=== PATIENT | female | born 1990 | race Caucasian/White ===

== ENCOUNTER 2016-07-27 06:41 | Emergency (ER) | payer OTHER ==
[2016-07-27 06:45] VITALS: BP 113/60; PULSE 92; RESP 18; TEMP 97.6
[2016-07-27] MEDS ORDERED: Acetaminophen-Codeine 300-30mg TAB PO STA (06:50)
[2016-07-27] MEDS ORDERED: predniSONE 20 MG TAB PO STA (06:50)
--- NOTE | 2016-07-27 06:50 | ED ---
General Adult HPI - General Chief complaint: ENT Stated complaint: facial pain Time Seen by Provider: 07/27/16 06:47 Source: patient, RN notes reviewed, old records reviewed Mode of arrival: ambulatory Limitations: no limitations - History of Present Illness Initial comments: This is a 25-year-old female the ER for evaluation of dental pain, right dental caries, severe dental caries throughout. Severe dental pain center last night and worsening. No nausea vomiting no fevers. No significant facial swelling. Patient does see a dentist regularly scheduled at teeth pulled. - Related Data Home Medications Medication Instructions Recorded Confirmed Nto-Qaej-Iozjp Acid 1 tab PO DAILY 06/15/15 07/14/15 [-U Capsule] Allergies Allergy/AdvReac Type Severity Reaction Status Date / Time No Known Allergies Allergy Verified 07/27/16 06:46 Review of Systems ROS Statement: Those systems with pertinent positive or pertinent negative responses have been documented in the HPI. ROS Other: All systems not noted in ROS Statement are negative. Past Medical History Past Medical History: Asthma, Osteoarthritis (OA) Additional Past Medical History / Comment(s): pt hasn't used inhaler since before History of Any Multi-Drug Resistant Organisms: None Reported Past Surgical History: Tonsillectomy Past Anesthesia/Blood Transfusion Reactions: No Reported Reaction Past Psychological History: No Psychological Hx Reported Smoking Status: Current every day smoker Past Alcohol Use History: None Reported Past Drug Use History: Marijuana - Past Family History Mother Family Medical History: Asthma, Rheumatoid Arthritis (RA) General Exam Limitations: no limitations General appearance: alert, in no apparent distress Head exam: Present: atraumatic, normocephalic, normal inspection Eye exam: Present: normal appearance, PERRL, EOMI. Absent: scleral icterus, conjunctival injection, periorbital swelling ENT exam: Present: normal exam, mucous membranes moist, other (Patient does have severe dental caries, right-sided dental tenderness no abscess) Neck exam: Present: normal inspection. Absent: tenderness, meningismus, lymphadenopathy Respiratory exam: Present: normal lung sounds bilaterally. Absent: respiratory distress, wheezes, rales, rhonchi, stridor Cardiovascular Exam: Present: regular rate, normal rhythm, normal heart sounds. Absent: systolic murmur, diastolic murmur, rubs, gallop, clicks GI/Abdominal exam: Present: soft, normal bowel sounds. Absent: distended, tenderness, guarding, rebound, rigid Extremities exam: Present: normal inspection, full ROM, normal capillary refill. Absent: tenderness, pedal edema, joint swelling, calf tenderness Back exam: Present: normal inspection Neurological exam: Present: alert, oriented X3, CN II-XII intact Psychiatric exam: Present: normal affect, normal mood Skin exam: Present: warm, dry, intact, normal color. Absent: rash Course Vital Signs 07/27/16 06:43 Temperature 97.6 F Pulse Rate 92 Respiratory 18 Rate Blood Pressure 113/60 O2 Sat by Pulse 99 Oximetry Medical Decision Making - Medical Decision Making 21 for female here with right lower dental caries dental abscess, patient was treated with appropriate antibiotics and okay for discharge home Disposition Clinical Impression: Dental caries, Dental abscess Disposition: HOME SELF-CARE Condition: Good Instructions: Dental Caries (ED), Dental Abscess (ED) Referrals: Jessica Newell MD [Primary Care Provider] - 1-2 days
[2016-07-27] MEDS ORDERED: PENICILLIN V POTASSIUM 250 MG TAB PO STA (06:53)
== END 2016-07-27 07:09 | disposition home or self-care (01) ==
LOC: EC 06:41
DX: K04.7 Periapical abscess without sinus (principal); K02.9 Dental caries, unspecified; F17.200 Nicotine dependence, unspecified, uncomplicated; Z79.899 Other long term (current) drug therapy
CPT/HCPCS: 99283; J7512

== ENCOUNTER 2017-03-06 17:32 | Outpatient (CLI) | payer OTHER ==
[2017-03-06 18:35] LABS: Appearance,Urine Clear (Clear); Bilirubin,Urine Negative (Negative); Blood,Urine Negative (Negative); Color,Urine Yellow; Glucose,Urine (UA) Negative (Negative); Ketones,Urine Trace (Negative); Leukocyte Esterase,Urine Moderate (Negative); Mucus,Urine Few /hpf; Nitrite,Urine Negative (Negative); PH, Urine 6.5 (5.0-8.0); Protein,Urine 1+ (Negative); RBC,Urine 1 /hpf (0-5); Specific Gravity,Urine 1.021 (1.001-1.035); Squamous Epithelial Cell,Urine 2 /hpf (0-4); WBC,Urine <1 /hpf (0-5)
[2017-03-06 18:39] VITALS: BP 109/65; PULSE 100; RESP 19; TEMP 97.8
--- NOTE | 2017-03-24 11:48 | P.MSEPDOC ---
Presenting Problems - Arrival Data Date of Arrival on Unit: 03/06/17 Time of Arrival on Unit: 17:32 Mode of Transport: Wheelchair - Complaint OB-Reason for Admission/Chief Complaint: Possible Onset of Labor Comment: Contractions starting yesterday about noon, worsening about 1700 yesterday evening. Medical History - Information : 2 Para: 1 Term: 1 : 0 Abortions: Spontaneous or Elective: 0 Number of Living Children: 1 - Gestational Age Gestational Age by TANGELA (wks/days): 29 Weeks and 4 Days - History Complications: Smoker Review of Systems - Review of Systems Constitutional: No problems Breast: No problems ENT: Cough Cardiovascular: No problems Respiratory: No problems Gastrointestinal: No problems Genitourinary: No problems Musculoskeletal: No problems Neurological: No problems Skin: No problems Vital Signs - Temperature Temperature: 97.8 F Temperature Source: Temporal Artery Scan - Pulse Pulse Oximetery Pulse Rate: 100 Pulse Assessment Method: Pulse Oximetry - Respirations Respiratory Rate: 19 Oxygen Delivery Method: Room Air O2 Sat by Pulse Oximetry: 97 - Blood Pressure Right Arm Blood Pressure: 109/65 Blood Pressure Mean: 79 Blood Pressure Source: Automatic Cuff Medical Screen Scoring (Pre) - Cervical Exam Dilation: 0 cm = 0 Membranes: Intact - Uterine Contractions Frequency: < 36 weeks = 6 Duration: > 40 seconds = 2 Intensity: N/A - Maternal Vital Signs Maternal Temperature: N/A Maternal Blood Pressure: N/A Signs of Preeclampsia: N/A Maternal Respirations: N/A - Pain Assessment Pain Location and Character: Back, Abdomen Pain Scale Used: Numeric (1 - 10) Pain Intensity: 8 Pain Management Goal: 2 Pain Description: Cramping Pain Radiation Location: n/a Pain Frequency: Intermittent Pain Duration: 1 Pain Duration Units: Days Pain Behavior: Vocalization Effects of Pain: n/a Pain Aggravating Factors: Contractions Pharmacological Interventions: Discuss Pain Med Options Non-Pharmacological Interventions: Distraction - Maternal Trauma Maternal Trauma: N/A - Assessment Baseline FHR: 140 Heart Rate - NICHD Category: Category I (Normal) = 0 NST: Reactive Position: N/A Station: N/A - Total Score Total Score (Pre): 8 - Level of Risk Level of Risk: Medium (6-9) Physician Notification (Pre) - Physician Notified Physician Notified Date: 03/06/17 Physician Notified Time: 18:20 Physician/Practitioner Notifed:: Patricia Spoke With: Patricia New Order Received: Yes (FFN, U/A) Medical Screen Scoring (Post) - Cervical Exam Dilation: 0 cm = 0 Membranes: Intact - Uterine Contractions Frequency: > 5 minutes apart = 1 Duration: > 40 seconds = 2 Intensity: N/A - Maternal Vital Signs Maternal Temperature: N/A Maternal Blood Pressure: N/A Signs of Preeclampsia: N/A Maternal Respirations: N/A - Maternal Trauma Maternal Trauma: N/A - Assessment Heart Rate - NICHD Category: Category I (Normal) = 0 NST: Reactive Position: N/A Station: N/A - Total Score Total Score (Post): 3 - Post Treatment Level of Risk Post Treatment Level of Risk: Low (0-5) Physician Notification (Post) - Physician Notified Physician Notified Date: 03/06/17 Physician Notified Time: 19:20 Physician/Practitioner Notified:: Dr Gomez Spoke With: Dr Gomez New Order Received: Yes - Notification Comment Comment: Pt here with complaints of contractions, FFN was positive. Contractions tracing as irregular on monitor, cervix still closed, thick, high, Order to discharge patient with instructions to call office tomorrow morning for appointment with Dr Rasmussen. Disposition - Disposition OB Disposition: Discharge to home Discharge Date: 03/06/17 Discharge Time: 19:25 I agree with the RN Medical Screening Exam: Yes Risk & Benefit of care provided described in d/c instruction: Yes Diagnosis: FALSE LABOR BEFORE 37 COMPLETED WEEKS OF GEST, SECOND TRI
== END 2017-03-06 19:25 | disposition home or self-care (01) ==
LOC: FBPOP 17:32
PROVIDERS: ATTEND Obstetrics & Gynecology
DX: O47.02 False labor before 37 completed weeks of gestation, second trimester (principal); Z3A.29 29 weeks gestation of pregnancy
CPT/HCPCS: 81001; 82731; 99213

== ENCOUNTER 2017-04-04 18:15 | Outpatient (CLI) | payer OTHER ==
[2017-04-04 18:48] VITALS: BP 114/66; PULSE 98; RESP 20; TEMP 97.4
[2017-04-04] MEDS ORDERED: LACTATED RINGERS 1,000 ML IV SCH ×2 (19:15→20:30)
--- NOTE | 2017-04-04 21:02 | US ---
EXAMINATION TYPE: US OB >= 14 wk fetus DATE OF EXAM: 04/04/2017 COMPARISON: None CLINICAL HISTORY: bleeding and need cervical length TECHNIQUE: Transabdominal (TA) GESTATIONAL AGE / DATING Physician Established: (33 weeks/5 days) EDC: 05/18/2017 Dates by LMP: (33 weeks/5 days) EDC: 05/18/2017 Dates by First Scan: No previous this is first scan Dates by Current Scan: (33 weeks/1 days) EDC: 05/22/2017 SURVEY IUP: Single PLACENTA: Fundal PREVIA: No Previa PEYTON: 13.6 cm Normal CERVICAL LENGTH (transabdominal: norm > 3.0cm): 3.8 cm BIOMETRY PRESENTATION: Vertex LIE: Longitudinal BPD: 8.5 cm 34 weeks / 2 days HC: 30.7 cm 34 weeks / 2 days AC: 28.4 cm 32 weeks / 3 days FL: 6.4 cm 33 weeks / 1 days ESTIMATED WEIGHT IN GRAMS: 2089 grams ESTIMATED WEIGHT IN LBS/OZ: 4 lbs. 10 oz. WEIGHT PERCENTAGE BASED ON ESTABLISHED DATES: 22% HC/AC: 1.1cm Normal FL/AC: 75.5cm Normal HEART RATE: 141 bpm RHYTHM: Normal MATERNAL WALL MEASUREMENT: 1.8 cm from skin to anterior uterine wall (if exam limited due to body hab itus). Viable IUP 33w 1d TANGELA 05/22/2017 HR 141 BPM IMPRESSION: The ultrasound gestational age is 33 weeks 1 day. I see no complicating process.
[2017-04-04 21:05] LABS: Appearance,Urine Cloudy (Clear); Bilirubin,Urine Negative (Negative); Blood,Urine Moderate (Negative); Color,Urine Yellow; Glucose,Urine (UA) Negative (Negative); Ketones,Urine Negative (Negative); Leukocyte Esterase,Urine Small (Negative); Mucus,Urine Rare /hpf; Nitrite,Urine Negative (Negative); Protein,Urine Negative (Negative); RBC,Urine <1 /hpf (0-5); Specific Gravity,Urine 1.009 (1.001-1.035); Squamous Epithelial Cell,Urine 8 /hpf (0-4); Urobilinogen,Urine <2.0 mg/dL (<2.0); WBC,Urine 2 /hpf (0-5)
[2017-04-04] MEDS ORDERED: BETAMET ACET-BETAMETH SOD PHOS 6 MG/ML VIAL IM SCH (21:15)
--- NOTE | 2017-04-25 16:50 | P.MSEPDOC ---
Presenting Problems - Arrival Data Date of Arrival on Unit: 04/04/17 Time of Arrival on Unit: 18:15 Mode of Transport: Portable - Complaint OB-Reason for Admission/Chief Complaint: Other Comment: contractions and blood on toilet tissue Medical History - Information : 2 Para: 1 Term: 1 : 0 Abortions: Spontaneous or Elective: 0 Number of Living Children: 1 - Gestational Age Gestational Age by TANGELA (wks/days): 33 Weeks and 5 Days - History Complications: Smoker Review of Systems - Review of Systems Constitutional: No problems Breast: No problems ENT: No problems Cardiovascular: No problems Respiratory: No problems Gastrointestinal: No problems Genitourinary: No problems Musculoskeletal: No problems Neurological: No problems Skin: No problems Comment: tonsils removed age 7 and tubes in ears at age 7 Vital Signs - Temperature Temperature: 97.4 F Temperature Source: Temporal Artery Scan - Pulse Sitting Brachial Pulse Rate: 98 Pulse Assessment Method: Automatic Cuff - Respirations Respiratory Rate: 20 Oxygen Delivery Method: Room Air O2 Sat by Pulse Oximetry: 96 - Blood Pressure Right Arm Blood Pressure: 114/66 Blood Pressure Mean: 82 Blood Pressure Source: Automatic Cuff Medical Screen Scoring (Pre) - Pain Assessment Pain Location and Character: Back Pain Scale Used: Numeric (1 - 10) Pain Intensity: 6 Pain Description: *Acute, Pressure, Throbbing Pain Frequency: Intermittent Pain Behavior: Vocalization Pain Aggravating Factors: Contractions - Maternal Trauma Maternal Trauma: N/A - Assessment Baseline FHR: 150 Heart Rate - NICHD Category: Category I (Normal) = 0 - Total Score Total Score (Pre): 0 Physician Notification (Pre) - Physician Notified Physician Notified Date: 04/04/17 Physician Notified Time: 19:00 Physician/Practitioner Notifed:: dr cruz Spoke With: dr cruz New Order Received: Yes Medical Screen Scoring (Post) - Cervical Exam Dilation: 1-3 cm = 1 Membranes: Intact - Uterine Contractions Frequency: < 36 weeks = 6 Duration: > 40 seconds = 2 - Maternal Vital Signs Maternal Temperature: N/A Maternal Blood Pressure: N/A Signs of Preeclampsia: N/A Maternal Respirations: N/A - Pain Assessment Pain Location and Character: Abdomen Pain Scale Used: Numeric (1 - 10) Pain Intensity: 8 - Maternal Trauma Maternal Trauma: N/A - Assessment Heart Rate: 135 Heart Rate - NICHD Category: Category I (Normal) = 0 NST: Reactive Position: N/A - Total Score Total Score (Post): 9 - Post Treatment Level of Risk Post Treatment Level of Risk: Medium (6-9) Physician Notification (Post) - Physician Notified Physician Notified Date: 04/04/17 Physician Notified Time: 21:12 Physician/Practitioner Notified:: Dr Cruz - Notification Comment Comment: reported on +ffn (blood tinged swab), UA results, pt still ezequiel but states some are painful and some are not. Reported on no cervical change after 1 hr, IV fluids infused. orders to d/c home with current restrictions, and instructions to return with worsening sx. orders to give betamethasone now, and pt is to return tomorrow afternoon for 2nd dose, as well as call office in am for follow up. Disposition - Disposition OB Disposition: Discharge to home Discharge Date: 04/04/17 Discharge Time: 21:33 I agree with the RN Medical Screening Exam: Yes Risk & Benefit of care provided described in d/c instruction: Yes Diagnosis: FALSE LABOR, UNSPECIFIED
== END 2017-04-04 21:33 | disposition home or self-care (01) ==
LOC: FBPOP 18:15
PROVIDERS: ATTEND Obstetrics & Gynecology
DX: O47.9 False labor, unspecified (principal); O99.333 Smoking (tobacco) complicating pregnancy, third trimester; Z3A.33 33 weeks gestation of pregnancy
CPT/HCPCS: 59025; 99215; 96360; 96361; 96372; 82731; 81001; 76805; J0702

== ENCOUNTER 2017-04-05 16:30 | Outpatient (CLI) | payer OTHER ==
[2017-04-05] MEDS ORDERED: BETAMET ACET-BETAMETH SOD PHOS 6 MG/ML VIAL IM STA (16:48)
[2017-04-05 17:03] VITALS: TEMP 98.9
--- NOTE | 2017-05-19 08:22 | P.MSEPDOC ---
Presenting Problems - Arrival Data Date of Arrival on Unit: 04/05/17 Time of Arrival on Unit: 16:48 Mode of Transport: Ambulatory - Complaint OB-Reason for Admission/Chief Complaint: Other Comment: Pt reports for second celestone injection. Medical History - Information : 2 Para: 1 Term: 1 : 0 Abortions: Spontaneous or Elective: 0 Number of Living Children: 1 - Gestational Age Gestational Age by TANGELA (wks/days): 33 Weeks and 6 Days - History Complications: Other Comment: Pre-term labor Review of Systems - Review of Systems Constitutional: No problems Breast: No problems ENT: No problems Cardiovascular: No problems Respiratory: No problems Gastrointestinal: No problems Genitourinary: No problems Musculoskeletal: No problems Neurological: No problems Skin: No problems Vital Signs - Temperature Temperature: 98.9 F Temperature Source: Oral Physician Notification (Pre) - Physician Notified Physician Notified Date: 04/05/17 Physician Notified Time: 17:03 Physician/Practitioner Notifed:: Grady Disposition - Disposition OB Disposition: Discharge to home, Written follow up instructions reviewed Discharge Date: 04/05/17 Discharge Time: 17:44 I agree with the RN Medical Screening Exam: Yes Risk & Benefit of care provided described in d/c instruction: Yes Diagnosis: RELATED CONDITIONS, UNSPECIFIED, THIRD TRIMESTER
== END 2017-04-05 17:44 | disposition home or self-care (01) ==
LOC: FBPOP 16:30
PROVIDERS: ATTEND Obstetrics & Gynecology
DX: O99.89 Other specified diseases and conditions complicating pregnancy, childbirth and the puerperium (principal); O26.93 Pregnancy related conditions, unspecified, third trimester; Z3A.33 33 weeks gestation of pregnancy
CPT/HCPCS: 59025; 96372; J0702

== ENCOUNTER 2017-04-24 22:21 | Outpatient (CLI) | payer OTHER ==
[2017-04-24 23:53] VITALS: BP 119/70; PULSE 104; RESP 16
--- NOTE | 2017-06-02 10:16 | P.MSEPDOC ---
Presenting Problems - Arrival Data Date of Arrival on Unit: 04/24/17 Time of Arrival on Unit: 10:25 Mode of Transport: Ambulatory - Complaint OB-Reason for Admission/Chief Complaint: Possible Onset of Labor, Vaginal Bleeding Comment: Presents to triage with c/o bleeding and contractions starting around 2230. Medical History - Information : 2 Para: 1 Term: 1 : 0 Abortions: Spontaneous or Elective: 0 Number of Living Children: 1 - Gestational Age Gestational Age by TANGELA (wks/days): 36 Weeks and 4 Days Review of Systems - Review of Systems Constitutional: No problems Breast: No problems ENT: No problems Cardiovascular: No problems Respiratory: No problems Gastrointestinal: No problems Genitourinary: No problems Musculoskeletal: No problems Neurological: No problems Skin: No problems Vital Signs - Pulse Right Pulse Rate: 104 Pulse Assessment Method: Palpation - Respirations Respiratory Rate: 16 Oxygen Delivery Method: Room Air O2 Sat by Pulse Oximetry: 98 - Blood Pressure Right Arm Blood Pressure: 119/70 Blood Pressure Mean: 86 Blood Pressure Source: Automatic Cuff Medical Screen Scoring (Pre) - Cervical Exam Dilation: 1-3 cm = 1 Effacement: Exam Deferred Membranes: Intact - Uterine Contractions Frequency: N/A Duration: N/A Intensity: N/A - Maternal Vital Signs Maternal Temperature: N/A Maternal Blood Pressure: N/A Signs of Preeclampsia: N/A Maternal Respirations: N/A - Pain Assessment Pain Location and Character: Abdomen Pain Scale Used: Numeric (1 - 10) Pain Intensity: 8 Pain Management Goal: 0 Pain Description: *Acute, Cramping Pain Frequency: Intermittent Pain Duration Units: Minutes Pain Behavior: Vocalization Pain Aggravating Factors: Position Non-Pharmacological Interventions: Distraction, Inactivity, Position/Reposition , Relaxation Technique - Maternal Trauma Maternal Trauma: N/A - Assessment Baseline FHR: 135 Heart Rate - NICHD Category: Category I (Normal) = 0 NST: Reactive Position: N/A Station: N/A - Total Score Total Score (Pre): 1 - Level of Risk Level of Risk: Low (0-5) Physician Notification (Pre) - Physician Notified Physician Notified Date: 04/24/17 Physician Notified Time: 23:06 Physician/Practitioner Notifed:: Dr. Lincoln Spoke With: Dr. Lincoln New Order Received: Yes - Notification Comment Comment: Order to recheck pt in one hour, if no change pt is cleared for discharge home with follow up instructions. Medical Screen Scoring (Post) - Cervical Exam Dilation: 1-3 cm = 1 Effacement: Exam Deferred Membranes: Intact - Uterine Contractions Frequency: N/A Duration: N/A Intensity: N/A - Maternal Vital Signs Maternal Temperature: N/A Maternal Blood Pressure: N/A Signs of Preeclampsia: N/A Maternal Respirations: N/A - Pain Assessment Pain Location and Character: Abdomen Pain Scale Used: Numeric (1 - 10) Pain Intensity: 7 Pain Management Goal: 0 Pain Description: *Acute, Cramping Pain Frequency: Intermittent Pain Duration Units: Minutes Pain Behavior: Vocalization Pain Aggravating Factors: Activity Non-Pharmacological Interventions: Distraction, Inactivity, Position/Reposition , Relaxation Technique - Maternal Trauma Maternal Trauma: N/A - Assessment Heart Rate: 135 Heart Rate - NICHD Category: Category I (Normal) = 0 NST: Reactive Position: N/A Station: N/A - Total Score Total Score (Post): 1 - Post Treatment Level of Risk Post Treatment Level of Risk: Low (0-5) Physician Notification (Post) - Physician Notified Physician Notified Date: 04/24/17 Physician Notified Time: 23:06 Physician/Practitioner Notified:: Dr. Lincoln Spoke With: Dr. Lincoln - Notification Comment Comment: No change in cervical exam. Pt is cleared for discharge home at this time per Dr. Lincoln. Discharege instructions given. Disposition - Disposition OB Disposition: Discharge to home Discharge Date: 04/24/17 Discharge Time: 22:36 I agree with the RN Medical Screening Exam: Yes Risk & Benefit of care provided described in d/c instruction: Yes Diagnosis: FALSE LABOR, UNSPECIFIED
== END 2017-04-24 23:36 | disposition home or self-care (01) ==
LOC: FBPOP 22:21
PROVIDERS: ATTEND Obstetrics & Gynecology Obstetrics
DX: O47.03 False labor before 37 completed weeks of gestation, third trimester (principal); Z3A.36 36 weeks gestation of pregnancy
CPT/HCPCS: 59025; 99213

== ENCOUNTER 2017-05-04 01:45 | Outpatient (CLI) | payer OTHER ==
[2017-05-04 03:33] VITALS: BP 108/55; PULSE 102; RESP 18; TEMP 97.5
--- NOTE | 2017-05-12 10:41 | P.MSEPDOC ---
Presenting Problems - Arrival Data Date of Arrival on Unit: 05/04/17 Time of Arrival on Unit: 01:45 Mode of Transport: Ambulatory - Complaint OB-Reason for Admission/Chief Complaint: Possible Onset of Labor Comment: pt to triage c/o contractions states she had intercourse recently Medical History - Information : 2 Para: 1 Term: 1 : 0 Abortions: Spontaneous or Elective: 0 Number of Living Children: 1 - Gestational Age Gestational Age by TANGELA (wks/days): 38 Weeks and 0 Days - History Complications: Smoker Review of Systems - Review of Systems Constitutional: No problems Breast: No problems ENT: No problems Cardiovascular: No problems Respiratory: No problems Gastrointestinal: No problems Genitourinary: No problems Musculoskeletal: No problems Neurological: No problems Skin: No problems Vital Signs - Temperature Temperature: 97.5 F Temperature Source: Temporal Artery Scan - Pulse Right Supine Brachial Pulse Rate: 102 Pulse Assessment Method: Automatic Cuff - Respirations Respiratory Rate: 18 Oxygen Delivery Method: Room Air O2 Sat by Pulse Oximetry: 98 - Blood Pressure Right Arm Supine Blood Pressure: 108/55 Blood Pressure Mean: 72 Blood Pressure Source: Automatic Cuff Medical Screen Scoring (Pre) - Cervical Exam Dilation: 1-3 cm = 1 Effacement: More than 50% = 2 Membranes: Intact - Uterine Contractions Frequency: > or = 36 weeks =2 Duration: > 40 seconds = 2 - Maternal Vital Signs Maternal Temperature: N/A Maternal Blood Pressure: N/A Signs of Preeclampsia: N/A Maternal Respirations: N/A - Pain Assessment Pain Location and Character: Abdomen Pain Scale Used: Numeric (1 - 10) Pain Intensity: 10 Pain Management Goal: 5 Pain Description: *Acute Pain Radiation Location: contractions Pain Frequency: Intermittent Pain Duration: 5 Pain Duration Units: Hours Pain Behavior: Fidgeting, Moving Slowly Effects of Pain: slow moving Pain Aggravating Factors: Contractions - Maternal Trauma Maternal Trauma: N/A - Assessment Baseline FHR: 125 Heart Rate - NICHD Category: Category I (Normal) = 0 NST: Reactive Position: N/A - Total Score Total Score (Pre): 7 - Level of Risk Level of Risk: Medium (6-9) Physician Notification (Pre) - Physician Notified Physician Notified Date: 05/04/17 Physician Notified Time: 02:59 Physician/Practitioner Notifed:: Dr Cruz Spoke With: Dr Cruz New Order Received: Yes - Notification Comment Comment: Vag exam same x2 after 1 hour, pt offered to stay and walk the halls for another hour to be rechecked or go home and take a shower, pt requesting to go home at this time. Will return if symptoms worsen. Disposition - Disposition OB Disposition: Discharge to home Transferred to:: Home Discharge Date: 05/04/17 Discharge Time: 03:10 I agree with the RN Medical Screening Exam: Yes Risk & Benefit of care provided described in d/c instruction: Yes Diagnosis: FALSE LABOR, UNSPECIFIED
== END 2017-05-04 03:10 | disposition home or self-care (01) ==
LOC: FBPOP 01:45
PROVIDERS: ATTEND Obstetrics & Gynecology
DX: O47.1 False labor at or after 37 completed weeks of gestation (principal); Z3A.38 38 weeks gestation of pregnancy; O99.333 Smoking (tobacco) complicating pregnancy, third trimester
CPT/HCPCS: 59025; 99213

== ENCOUNTER 2017-05-04 06:59 | Outpatient (CLI) | payer OTHER ==
[2017-05-04 07:22] VITALS: BP 115/64; PULSE 96; RESP 20; TEMP 97.2
--- NOTE | 2017-05-12 10:42 | P.MSEPDOC ---
Presenting Problems - Arrival Data Date of Arrival on Unit: 05/04/17 Time of Arrival on Unit: 06:54 Mode of Transport: Wheelchair - Complaint OB-Reason for Admission/Chief Complaint: Possible Onset of Labor Comment: contractions since 10pm last evening. Medical History - Information : 2 Para: 1 Term: 1 : 0 Abortions: Spontaneous or Elective: 0 Number of Living Children: 1 - Gestational Age Gestational Age by TANGELA (wks/days): 38 Weeks and 0 Days Review of Systems - Review of Systems Constitutional: No problems Breast: No problems ENT: No problems Cardiovascular: No problems Respiratory: No problems Gastrointestinal: No problems Genitourinary: No problems Musculoskeletal: No problems Neurological: No problems Skin: No problems Vital Signs - Temperature Temperature: 97.2 F Temperature Source: Temporal Artery Scan - Pulse Right Sitting Brachial Pulse Rate: 96 Pulse Assessment Method: Automatic Cuff - Respirations Respiratory Rate: 20 Oxygen Delivery Method: Room Air - Blood Pressure Right Arm Sitting Blood Pressure: 115/64 Blood Pressure Mean: 81 Blood Pressure Source: Automatic Cuff Medical Screen Scoring (Pre) - Cervical Exam Dilation: 1-3 cm = 1 Membranes: Intact - Uterine Contractions Frequency: > or = 36 weeks =2 Duration: > 40 seconds = 2 - Pain Assessment Pain Location and Character: Abdomen Pain Scale Used: Numeric (1 - 10) Pain Intensity: 10 Pain Management Goal: 3 Pain Description: Cramping Pain Radiation Location: n/a Pain Duration: 9 Pain Duration Units: Hours Pain Behavior: Facial Grimacing, Moving Slowly, Vocalization Pain Aggravating Factors: Activity - Assessment Baseline FHR: 125 Heart Rate - NICHD Category: Category I (Normal) = 0 NST: Reactive - Total Score Total Score (Pre): 5 - Level of Risk Level of Risk: Low (0-5) Medical Screen Scoring (Post) - Cervical Exam Dilation: 1-3 cm = 1 Effacement: More than 50% = 2 Membranes: Intact - Uterine Contractions Frequency: > 5 minutes apart = 1 Duration: N/A Intensity: N/A - Maternal Vital Signs Maternal Temperature: N/A Maternal Blood Pressure: N/A Signs of Preeclampsia: N/A Maternal Respirations: N/A - Maternal Trauma Maternal Trauma: N/A - Assessment Heart Rate: 130 Heart Rate - NICHD Category: Category I (Normal) = 0 NST: Reactive Position: N/A Station: N/A - Total Score Total Score (Post): 4 - Post Treatment Level of Risk Post Treatment Level of Risk: Low (0-5) Physician Notification (Post) - Physician Notified Physician Notified Date: 05/04/17 Physician Notified Time: 08:33 Physician/Practitioner Notified:: sherri Spoke With: sherri New Order Received: Yes (discharged home) Disposition - Disposition OB Disposition: Discharge to home Discharge Date: 05/04/17 Discharge Time: 08:33 I agree with the RN Medical Screening Exam: Yes Risk & Benefit of care provided described in d/c instruction: Yes Diagnosis: FALSE LABOR, UNSPECIFIED
== END 2017-05-04 08:33 | disposition home or self-care (01) ==
LOC: FBPOP 06:59
PROVIDERS: ATTEND Obstetrics & Gynecology
DX: O47.1 False labor at or after 37 completed weeks of gestation (principal); Z3A.38 38 weeks gestation of pregnancy
CPT/HCPCS: 59025; 99213

== ENCOUNTER 2017-05-09 23:11 | Inpatient (IN) | payer OTHER ==
[2017-05-10] MEDS ORDERED: METHYLERGONOVINE 0.2 MG/ML 1 ML AMP IM PRN (01:25)
[2017-05-10] MEDS ORDERED: OXYTOCIN 10 UNIT/ML 1 ML VIAL IM PRN (01:25)
[2017-05-10] MEDS ORDERED: LIDOCAINE 1% (PF) 10 MG/ML (30 ML SDV) SQ PRN (01:25)
[2017-05-10] MEDS ORDERED: TERBUTALINE 1 MG/ML VIAL SQ PRN (01:25)
[2017-05-10] MEDS ORDERED: CARBOPROST TROMETHAMINE 250 MCG/ML 1 ML AMP IM PRN (01:25)
--- NOTE | 2017-05-10 01:58 | P.HPOB ---
History of Present Illness H&P Date: 05/10/17 This is a 26-year-old white female 2 para 1001 EDC 05/18/2017 at 38-6/7 weeks' gestation. Patient presents this morning with a large gush clear fluid at approximately 0120 hours. She is having irregular uterine contractions. Fetus is been active throughout the . Past obstetric history significant for blood type B negative, rubella status immune. Group B strep cultures negative. Gonorrhea and chlamydia cultures negative. HIV testing, hepatitis B surface antigen, urine screen, gonorrhea and chlamydia cultures all negative. One-hour Glucola 118. Past medical history significant for asthma, on no meds. Past surgical history significant for tonsillectomy and tympanic tubes placed at age 7. Current medications dye clean just when necessary, vitamin daily. ALLERGIES none known. Social history patient smokes tobacco one half pack per day, she is , she denies alcohol or drug use. On exam patient is 5 foot 3 inches, 168 pounds, blood pressure 109/69, pulse 106. The general physical exam is significant for large uric standard is, 22 peripheral tattoos, and trace edema. The chest is clear in all luong. The abdomen is obvious E gravid with a fundal height of 39 cm. Cervix is 3 cm dilated, 50% effaced, vertex presentation, with obvious clear fluid on the perineal body. Cervix is slightly posterior. heart rate is in the 140s with frequent accelerations consistent with reactive NST. Uterine contractions are occurring spontaneously approximately every 8-10 minutes apart of mild intensity. Impression: 39-6/7 weeks intrauterine , spontaneous amniorrhexis, not in active labor. Otherwise all signs reassuring. Plan: Close maternal and surveillance. Likely Pitocin augmentation pending clinical progress. Anticipate normal spontaneous vaginal delivery. Review of Systems Constitutional: Reports as per HPI Past Medical History Past Medical History: Asthma, Osteoarthritis (OA) Additional Past Medical History / Comment(s): pt hasn't used inhaler since before History of Any Multi-Drug Resistant Organisms: None Reported Past Surgical History: Tonsillectomy Past Anesthesia/Blood Transfusion Reactions: No Reported Reaction Smoking Status: Current every day smoker - Past Family History Mother Family Medical History: Asthma, Rheumatoid Arthritis (RA) Medications and Allergies Home Medications Medication Instructions Recorded Confirmed Type Pnv,Calcium 72/Iron/Folic Acid 1 tab PO DAILY 12/18/17 02/20/18 History [ Plus Tablet] Allergies Allergy/AdvReac Type Severity Reaction Status Date / Time No Known Allergies Allergy Verified 05/09/17 23:21 Exam - Vital Signs Vital signs: Intake and Output 05/09/17 05/09/17 05/10/17 14:59 22:59 06:59 Other: Weight 76.204 kg Patient Weight 05/10/17 06:59 Weight 76.204 kg See dictation under HPI please Assessment and Plan Plan: Admit. Close maternal and surveillance. Consider oxytocin augmentation pending clinical progress. Anticipate normal spontaneous vaginal delivery. Time with Patient: Less than 30
[2017-05-10 02:05] LABS: Basophils % (A) 0 %; Eosinophils # (A) 0.1 k/uL (0-0.7); Eosinophils % (A) 1 %; HCT 36.4 % (34.0-46.0); HGB 12.6 gm/dL (11.4-16.0); Lymphocytes # (A) 2.3 k/uL (1.0-4.8); Lymphocytes % (A) 22 %; MCH 30.2 pg (25.0-35.0); MCHC 34.6 g/dL (31.0-37.0); MCV 87.2 fL (80.0-100.0); Mean Platelet Volume 7.3; Monocytes # (A) 0.5 k/uL (0-1.0); Monocytes % (A) 5 %; Neutrophils # (A) 7.4 k/uL (1.3-7.7); Neutrophils % (A) 70 %; Platelet Count 222 k/uL (150-450); RBC 4.17 m/uL (3.80-5.40); RDW 14.5 % (11.5-15.5); WBC 10.6 k/uL (3.8-10.6)
[2017-05-10] MEDS ORDERED: BUTORPHANOL 1 MG/ML 1 ML VIAL IV PRN (02:51)
[2017-05-10 03:04] VITALS: BMI 29.7
[2017-05-10] MEDS: LACTATED RINGERS 1,000 ML IV SCH ×3 (03:13→10:29)
[2017-05-10] MEDS ORDERED: fentaNYL (PF) 50 MCG/ML 5 ML AMP ONE (06:01)
[2017-05-10] MEDS ORDERED: BUPIVACAINE (PF) 0.25% 30 ML VIAL ONE (06:01)
[2017-05-10] MEDS ORDERED: SODIUM CHLORIDE 0.9% 100 ML BAG ONE (06:01)
[2017-05-10] MEDS ORDERED: BUPIVACAINE (PF) 0.25% 25 ML, fentaNYL (PF) 200 MCG in SODIUM CHLORIDE 0.9% 71 ML EPIDURAL ONE (06:17)
[2017-05-10] MEDS: OXYTOCIN 20 UNITS/1000 ML NS 1,000 ML IV SCH ×2 (06:37→19:59)
[2017-05-10] MEDS ORDERED: SIMETHICONE 80 MG CHEWABLE PO PRN (18:34)
[2017-05-10] MEDS ORDERED: WITCH HAZEL 1 EACH MED..PAD TOPICAL PRN (18:34)
[2017-05-10] MEDS ORDERED: BENZOCAINE/MENTHOL SPRAY 1 GM/SPRAY AEROSOL TOPICAL PRN (18:34)
[2017-05-10] MEDS ORDERED: diphenhydrAMINE 50 MG/ML 1 ML VIAL IVP PRN ×2 (18:34)
[2017-05-10] MEDS ORDERED: HYDROCORTISONE 2.5% RECTAL CREAM 30 GM TUBE RECTAL PRN (18:34)
[2017-05-10] MEDS ORDERED: Acetaminophen-Codeine 300-30mg TAB PO PRN ×2 (18:34)
[2017-05-10] MEDS ORDERED: ACETAMINOPHEN TAB 325 MG TAB PO PRN (18:34)
[2017-05-10] MEDS ORDERED: diphenhydrAMINE 25 MG CAP PO PRN (18:34)
[2017-05-10] MEDS ORDERED: ZOLPIDEM 5 MG TAB PO PRN (18:34)
[2017-05-10] MEDS ORDERED: diphenhydrAMINE 50 MG CAP PO PRN (18:34)
--- NOTE | 2017-05-10 18:39 | P.PROBDLV ---
Vaginal Delivery Note - . Vaginal Delivery Note: The patient is a 26-year-old 2 para 1001 admitted at 38-6/7 weeks by good dating parameters. She is admitted with documented spontaneous rupture of membranes of clear fluid. Her has been essentially uncomplicated though she is known to be Rh- and received RhoGAM at 28 weeks. On labor and delivery, all signs reassuring. She made no significant progress for several hours on labor and delivery and had Pitocin augmentation started. She had an epidural catheter placed for analgesia. She then made fairly slow progress through the latent phase of labor. She progressed to the active phase of labor at which time she made fairly steady and regular progress and ultimately progressed to anterior lip at which time the lip was able to be reduced while she pushed making her complete and at 0 station. She pushed over the course of approximately 5 minutes to a normal spontaneous vaginal delivery of a viable 6 lbs. 11 oz. baby girl with Apgars of 9 at 1 minute and 9 at 5 minutes delivered in the right occiput anterior position. cord blood was collected for evaluation for the necessity of RhoGAM prior to discharge. The placenta was delivered spontaneously, intact, and grossly normal with a grossly normal three- vessel cord inserted approximately 3 cm from margin of the placental disc. Inspection of the perineum vagina and cervix demonstrated no evidence of lacerations aside from a periurethral first-degree laceration not bleeding and not repaired. Estimated blood loss for the case was approximate 400 mL as her was initially some uterine atony which was controlled with IV Pitocin. All sponge, instrument, and needle counts were correct. Both mother and infant are resting comfortably in recovery.
[2017-05-10] MEDS: IBUPROFEN 600 MG TAB PO PRN (18:44)
[2017-05-10] MEDS ORDERED: OXYTOCIN 20 UNITS/1000 ML NS 1,000 ML IV SCH (18:45)
[2017-05-10] MEDS: SENNOSIDES-DOCUSATE SODIUM 1 EACH TAB PO SCH (19:59)
[2017-05-11] MEDS: LACTATED RINGERS 1,000 ML IV SCH (03:35)
[2017-05-11] MEDS: SENNOSIDES-DOCUSATE SODIUM 1 EACH TAB PO SCH (07:40)
[2017-05-11] MEDS: IBUPROFEN 600 MG TAB PO PRN ×3 (07:41→20:19)
--- NOTE | 2017-05-11 11:17 | P.DS ---
Providers Date of admission: 05/10/17 00:17 Expected date of discharge: 05/11/17 Attending physician: Susanne Rasmussen Primary care physician: Stated None - Discharge Diagnosis(es) (1) Normal vaginal delivery Current Visit: Yes Status: Acute (2) Term Current Visit: Yes Status: Acute Hospital Course: The patient is a 26-year-old 2 para 1001 admitted at 38-6/7 weeks by good dating parameters. She presented to the hospital with documented spontaneous rupture of membranes of clear fluid. Her has been uncomplicated and group B strep status is negative. On labor and delivery, she had an epidural catheter placed for analgesia and Pitocin augmentation started. She had a very slow progress through the latent phase and, to a lesser extent , the active phase of labor. She did ultimately progressed to complete and then pushed quickly to a normal spontaneous vaginal delivery of a viable 6 lbs. 11 oz. baby girl with Apgars of 9 at 1 minute and 9 at 5 minutes. Her course was unremarkable with vital signs remaining stable and her temperature was afebrile throughout. She was deemed stable for discharge by day #1 was discharged home to follow-up in the office in 6 weeks' time routinely. Discharge instructions included calling for any significantly increased bleeding or foul-smelling lochia, significantly increased fever or abdominal pain, perineal complaints, breast complaints, or anything else that concerned her. She was additionally instructed to have nothing in the vagina for at least 6 weeks time to include intercourse. She understood her instructions and agrees to follow up as noted above. Discharge medications included only [id number] analgesic pain medications. The patient has opted to bottlefeed. Maternal blood type is B- and cord blood was drawn and sent for evaluation for the necessity of RhoGAM prior to discharge. Rubella status is immune. Procedures: #1. Epidural analgesia #2. Pitocin augmentation #3. Normal spontaneous vaginal delivery Patient Condition at Discharge: Good Plan - Discharge Summary New Discharge Prescriptions: No Action Pnv,Calcium 72/Iron/Folic Acid [ Plus Tablet] 1 tab PO DAILY Discharge Medication List Pnv,Calcium 72/Iron/Folic Acid [ Plus Tablet] 1 tab PO DAILY 03/06/17 [ History] Follow up Appointment(s)/Referral(s): Susanne Rasmussen MD [STAFF PHYSICIAN] - 6 Weeks Discharge Disposition: HOME SELF-CARE
[2017-05-11 19:39] VITALS: BP 114/49; PULSE 100; RESP 20; TEMP 98.2
== END 2017-05-11 20:30 | disposition home or self-care (01) | DRG 775 ==
LOC: FBPOP 23:11 → 4FBP 05-10 00:17
PROVIDERS: ADMIT Obstetrics & Gynecology; ATTEND Obstetrics & Gynecology
PROC: 10E0XZZ Delivery of Products of Conception, External Approach (ICD-10-PCS; principal; 2017-05-10)
PROC: 00HU33Z Insertion of Infusion Device into Spinal Canal, Percutaneous Approach (ICD-10-PCS; 2017-05-10)
PROC: 3E0R3NZ Introduction of Analgesics, Hypnotics, Sedatives into Spinal Canal, Percutaneous Approach (ICD-10-PCS; 2017-05-10)
DX: O99.334 Smoking (tobacco) complicating childbirth (principal); F17.210 Nicotine dependence, cigarettes, uncomplicated; O62.2 Other uterine inertia; O70.0 First degree perineal laceration during delivery; M19.90 Unspecified osteoarthritis, unspecified site; Z37.0 Single live birth; Z3A.38 38 weeks gestation of pregnancy; Z82.5 Family history of asthma and other chronic lower respiratory diseases; Z82.61 Family history of arthritis; Z90.89 Acquired absence of other organs
CPT/HCPCS: 59025; 84112; 85025; 88307; 99213

== ENCOUNTER 2017-05-17 15:59 | Inpatient (IN) | payer OTHER ==
[2017-05-17] MEDS ORDERED: RX INFO: IV CONTRAST WAS GIVEN 1 EACH MISC MISCELLANE PRN (16:52)
[2017-05-17] MEDS ORDERED: MORPHINE SULFATE 4 MG/ML SYRINGE IV STA (16:52)
[2017-05-17] MEDS ORDERED: SODIUM CHLORIDE 0.9% 1,000 ML IV STA (16:52)
--- NOTE | 2017-05-17 17:08 | ED ---
General Adult HPI - General Chief complaint: Fever Stated complaint: Back and Abd Pain Time Seen by Provider: 05/17/17 16:39 Source: patient, RN notes reviewed, old records reviewed Mode of arrival: ambulatory Limitations: no limitations - History of Present Illness Initial comments: 26-year-old female presenting with chief complaint of right lower quadrant abdominal pain and fever. Patient also complains of right flank pain. She is 6 days status post vaginal delivery. Patient had no complications. She states that she delivered approximately 24 hours after her water broke. According to patient she did not receive any antibiotics during this hospital stay. She been afebrile and doing well after the delivery. Pain began over the past 2 days. His been constant in nature. She does report subjective fever and chills yesterday. Patient has some minor vaginal bleeding, no foul-smelling discharge. No dysuria. - Related Data Home Medications Medication Instructions Recorded Confirmed Pnv,Calcium 72/Iron/Folic Acid 1 tab PO DAILY 03/06/17 05/17/17 [ Plus Tablet] Ibuprofen [Motrin Ib] 200 - 800 mg PO Q6H PRN 05/17/17 05/17/17 Allergies Allergy/AdvReac Type Severity Reaction Status Date / Time No Known Allergies Allergy Verified 05/17/17 16:43 Review of Systems ROS Statement: Those systems with pertinent positive or pertinent negative responses have been documented in the HPI. ROS Other: All systems not noted in ROS Statement are negative. Past Medical History Past Medical History: Asthma, Osteoarthritis (OA) Additional Past Medical History / Comment(s): pt hasn't used inhaler since before History of Any Multi-Drug Resistant Organisms: None Reported Past Surgical History: Tonsillectomy Past Anesthesia/Blood Transfusion Reactions: No Reported Reaction Past Psychological History: No Psychological Hx Reported Smoking Status: Current every day smoker Past Alcohol Use History: None Reported Past Drug Use History: None Reported - Past Family History Mother Family Medical History: Asthma, Rheumatoid Arthritis (RA) General Exam Limitations: no limitations General appearance: alert, in no apparent distress Head exam: Present: atraumatic, normocephalic Eye exam: Present: normal appearance, PERRL, EOMI ENT exam: Present: normal exam Neck exam: Present: normal inspection. Absent: tenderness, meningismus Respiratory exam: Present: normal lung sounds bilaterally. Absent: respiratory distress Cardiovascular Exam: Present: regular rate, normal rhythm GI/Abdominal exam: Present: soft, tenderness (Right lower quadrant tenderness). Absent: distended, guarding, rebound Extremities exam: Present: normal inspection, normal capillary refill. Absent: pedal edema Back exam: Present: CVA tenderness (R) Neurological exam: Present: alert, oriented X3, CN II-XII intact. Absent: motor sensory deficit Psychiatric exam: Present: normal affect, normal mood Skin exam: Present: warm, dry, intact. Absent: cyanosis, diaphoretic Course Vital Signs 05/17/17 05/17/17 05/17/17 16:01 18:20 20:06 Temperature 98.4 F 98.0 F 97.8 F Pulse Rate 86 81 89 Respiratory 20 16 18 Rate Blood Pressure 103/60 116/83 O2 Sat by Pulse 98 100 Oximetry - Reevaluation(s) Reevaluation #1: 05/17/17 1831 Case discussed with patient's ecommerce marketing manager, Dr. Gomez, recommends ultrasound , this will be obtained in the emergency department. 05/17/17 20:00 Patient will be admitted for IV antibiotics and anticoagulation. Dr. Gomez states no issue with anti-coagulation 6 days . Medical Decision Making - Medical Decision Making 26-year-old female presenting with right lower quadrant pain. Patient is quite tender in the right lower quadrant, no rebound or guarding. Computed tomography scan is obtained, shows right lower quadrant inflammation, and thrombosed right ovarian vein. These findings are discussed with obstetrics, recommended ultrasound, ultrasound confirms no venous flow in the right ovarian vein, with good arterial flow to the bilateral ovaries. No blood cell count 10.1 which is normal. Hemoglobin 10.1, CMP within normal limits. Urinalysis is positive for 179 rbc's and 159 WBCs. Urine culture and blood cultures are pending. Patient is given 1 dose of ceftriaxone in the emergency department. She is started on Zosyn, and Lovenox. She will be admitted to internal medicine with obstetrics on consult. - Lab Data Result diagrams: 05/17/17 17:15 05/17/17 17:15 Lab Results 05/17/17 05/17/17 05/17/17 Range/Units 17:15 17:15 17:15 WBC 10.1 (3.8-10.6) k/uL RBC 3.45 L (3.80-5.40) m/uL Hgb 10.1 L (11.4-16.0) gm/dL Hct 29.0 L (34.0-46.0) % MCV 84.2 (80.0-100.0) fL MCH 29.2 (25.0-35.0) pg MCHC 34.7 (31.0-37.0) g/dL RDW 13.5 (11.5-15.5) % Plt Count 295 (150-450) k/uL Neutrophils % 69 % Lymphocytes % 20 % Monocytes % 8 % Eosinophils % 2 % Basophils % 0 % Neutrophils # 7.0 (1.3-7.7) k/uL Lymphocytes # 2.0 (1.0-4.8) k/uL Monocytes # 0.8 (0-1.0) k/uL Eosinophils # 0.2 (0-0.7) k/uL Basophils # 0.0 (0-0.2) k/uL Sodium 140 (137-145) mmol/L Potassium 4.0 (3.5-5.1) mmol/L Chloride 105 (98-107) mmol/L Carbon Dioxide 25 (22-30) mmol/L Anion Gap 10 mmol/L BUN 9 (7-17) mg/dL Creatinine 0.60 (0.52-1.04) mg/dL Est GFR (MDRD) Af Amer >60 (>60 ml/min/1.73 sqM) Est GFR (MDRD) Non-Af >60 (>60 ml/min/1.73 sqM) Glucose 82 (74-99) mg/dL Plasma Lactic Acid Luis 0.7 (0.7-2.0) mmol/L Calcium 9.1 (8.4-10.2) mg/dL Total Bilirubin 0.7 (0.2-1.3) mg/dL AST 24 (14-36) U/L ALT 19 (9-52) U/L Alkaline Phosphatase 83 (38-126) U/L Total Protein 6.6 (6.3-8.2) g/dL Albumin 3.6 (3.5-5.0) g/dL Amylase 54 (30-110) U/L Lipase 105 (23-300) U/L Urine Color Urine Appearance (Clear) Urine pH (5.0-8.0) Ur Specific [place] (1.001-1.035) Urine Protein (Negative) Urine Glucose (UA) (Negative) Urine Ketones (Negative) Urine Blood (Negative) Urine Nitrite (Negative) Urine Bilirubin (Negative) Urine Urobilinogen (<2.0) mg/dL Ur Leukocyte Esterase (Negative) Urine RBC (0-5) /hpf Urine WBC (0-5) /hpf Ur Squamous Epith Cells (0-4) /hpf Urine Bacteria (None) /hpf Urine Mucus (None) /hpf 05/17/17 Range/Units 17:35 WBC (3.8-10.6) k/uL RBC (3.80-5.40) m/uL Hgb (11.4-16.0) gm/dL Hct (34.0-46.0) % MCV (80.0-100.0) fL MCH (25.0-35.0) pg MCHC (31.0-37.0) g/dL RDW (11.5-15.5) % Plt Count (150-450) k/uL Neutrophils % % Lymphocytes % % Monocytes % % Eosinophils % % Basophils % % Neutrophils # (1.3-7.7) k/uL Lymphocytes # (1.0-4.8) k/uL Monocytes # (0-1.0) k/uL Eosinophils # (0-0.7) k/uL Basophils # (0-0.2) k/uL Sodium (137-145) mmol/L Potassium (3.5-5.1) mmol/L Chloride (98-107) mmol/L Carbon Dioxide (22-30) mmol/L Anion Gap mmol/L BUN (7-17) mg/dL Creatinine (0.52-1.04) mg/dL Est GFR (MDRD) Af Amer (>60 ml/min/1.73 sqM) Est GFR (MDRD) Non-Af (>60 ml/min/1.73 sqM) Glucose (74-99) mg/dL Plasma Lactic Acid Luis (0.7-2.0) mmol/L Calcium (8.4-10.2) mg/dL Total Bilirubin (0.2-1.3) mg/dL AST (14-36) U/L ALT (9-52) U/L Alkaline Phosphatase (38-126) U/L Total Protein (6.3-8.2) g/dL Albumin (3.5-5.0) g/dL Amylase (30-110) U/L Lipase (23-300) U/L Urine Color Yellow Urine Appearance Cloudy H (Clear) Urine pH 6.0 (5.0-8.0) Ur Specific [place] 1.023 (1.001-1.035) Urine Protein 1+ H (Negative) Urine Glucose (UA) Negative (Negative) Urine Ketones Negative (Negative) Urine Blood Large H (Negative) Urine Nitrite Negative (Negative) Urine Bilirubin Negative (Negative) Urine Urobilinogen <2.0 (<2.0) mg/dL Ur Leukocyte Esterase Large H (Negative) Urine RBC 179 H (0-5) /hpf Urine WBC 159 H (0-5) /hpf Ur Squamous Epith Cells 3 (0-4) /hpf Urine Bacteria Few H (None) /hpf Urine Mucus Many H (None) /hpf Disposition Clinical Impression: Thrombosis of ovarian vein Disposition: ADMITTED IP TO THIS [facility] Condition: Stable Referrals: None,Stated [Primary Care Provider] - 1-2 days Decision to Admit Reason: Admit from EC Decision Date: 05/17/17 Decision Time: 20:05
[2017-05-17 17:38] LABS: ALT 19 U/L (9-52); AST 24 U/L (14-36); Albumin 3.6 g/dL (3.5-5.0); Alkaline Phosphatase 83 U/L (38-126); Amylase 54 U/L (30-110); Anion Gap 10 mmol/L; Blood Urea Nitrogen 9 mg/dL (7-17); Calcium 9.1 mg/dL (8.4-10.2); Carbon Dioxide 25 mmol/L (22-30); Chloride 105 mmol/L (98-107); Glucose 82 mg/dL (74-99); Lipase 105 U/L (23-300); Sodium 140 mmol/L (137-145); Total Bilirubin 0.7 mg/dL (0.2-1.3); Total Protein 6.6 g/dL (6.3-8.2)
[2017-05-17 17:55] LABS: Appearance,Urine Cloudy (Clear); Bacteria,Urine Few /hpf; Bilirubin,Urine Negative (Negative); Blood,Urine Large (Negative); Color,Urine Yellow; Glucose,Urine (UA) Negative (Negative); Ketones,Urine Negative (Negative); Leukocyte Esterase,Urine Large (Negative); Mucus,Urine Many /hpf; Protein,Urine 1+ (Negative); RBC,Urine 179 /hpf (0-5); Specific Gravity,Urine 1.023 (1.001-1.035); Squamous Epithelial Cell,Urine 3 /hpf (0-4); Urobilinogen,Urine <2.0 mg/dL (<2.0); WBC,Urine 159 /hpf (0-5)
[2017-05-17 17:55] LABS: Basophils % (A) 0 %; Eosinophils # (A) 0.2 k/uL (0-0.7); Eosinophils % (A) 2 %; HGB 10.1 gm/dL (11.4-16.0); Lymphocytes % (A) 20 %; MCH 29.2 pg (25.0-35.0); MCHC 34.7 g/dL (31.0-37.0); MCV 84.2 fL (80.0-100.0); Mean Platelet Volume 8.3; Monocytes # (A) 0.8 k/uL (0-1.0); Monocytes % (A) 8 %; Neutrophils % (A) 69 %; Platelet Count 295 k/uL (150-450); RBC 3.45 m/uL (3.80-5.40); RDW 13.5 % (11.5-15.5); WBC 10.1 k/uL (3.8-10.6)
[2017-05-17] MEDS ORDERED: cefTRIAXone IN SWFI 1,000 MG/10 ML SYRINGE IVP STA (18:20)
--- NOTE | 2017-05-17 18:34 | CT ---
EXAMINATION TYPE: CT abdomen pelvis w con DATE OF EXAM: 05/17/2017 COMPARISON: 08/03/2014 HISTORY: Right lower quadrant pain s/p post [address] DLP: 521.5 mGycm Automated exposure control for dose reduction was used. TECHNIQUE: Helical acquisition of images was performed from the lung bases through the pelvis. CONTRAST: Performed without Oral Contrast and with IV Contrast, patient injected with 100 mL of Omnipaque 300. FINDINGS: Lung bases are clear. There is no pleural effusion. There is no pericardial effusion. Liver spleen pancreas gallbladder appear normal. Bile ducts are not dilated. Gallbladder measures 4 c m in diameter. There is no adrenal mass. Kidneys show satisfactory contrast opacification. There is no hydronephrosi s. There is fat stranding and fluid in the right lower quadrant. There is free fluid in the pelvis. U terus is enlarged consistent with recent . There is no retroperitoneal adenopathy. There is a large right ovary and vein. There are some varicos e veins in the right adnexal region in the right lower quadrant Appendix is not seen. The terminal ileum appears normal. I see no bony destructive process. CONCLUSION: Inflammatory changes in the right lower quadrant with fat stranding and fluid. There appears to be of dilated thrombosed right ovarian vein. There are varicose veins in the right adnexal region. Appendi x is not seen with certainty. I do not see specific evidence for appendicitis.
--- NOTE | 2017-05-17 19:44 | US ---
EXAMINATION TYPE: US pelvic complete DATE OF EXAM: 05/17/2017 COMPARISON: NONE CLINICAL HISTORY: Pain. 7 days, difficult delivery, flank pain yesterday, pelvic pain toda y, abnormal CT showed thrombosed ovarian vein TECHNIQUE: TA. Transabdominal sonographic images of the pelvis were acquired. TV approach was not done due to enlargement of uterus would limit exam and patients pelv ic pain Date of LMP: unknown EXAM MEASUREMENTS: Uterus: 15.2 x 11.6 x 8.7 cm Endometrial Stripe: 3.7-4.5 cm Right Ovary: 4.0 x 3.6 x 1.9 cm Left Ovary: 3.5 x 3.3 x 2.7 cm 1. Uterus: Anteverted grossly enlarged from recent delivery 2. Endometrium: thickened, heterogeneous appearance with vascular portions noted, 3. Right Ovary: cluster of vessels seen lateral to ovary along with heterogeneous material within ad nexa 4. Left Ovary: cluster of vessels noted lateral to ovary, otherwise wnl Spectral, color and waveform doppler imaging shows good arterial and venous flow within the ovaries ; there is no evidence for ovarian torsion. 5. Bilateral Adnexa: heterogeneous material within right adnexa 6. Posterior cul-de-sac: mild free fluid Multiple doppler waveforms of arterial and venous flow was achieved within right ovary IMPRESSION: There is arterial flow in both ovaries. No evidence of ovarian torsion. There are varicos e veins around the right ovary. There are a few varicose veins around the left ovary. There is venous flow in the right adnexal region but the right ovarian vein flowing to the inferior vena cava is not demonstrated. Left ovarian vein appears normal. Enlarged uterus related to recent . Minimal endometrial fluid consistent with recent delivery.
[2017-05-17] MEDS ORDERED: ENOXAPARIN 80 MG/0.8 ML SYRINGE SQ STA (20:06)
[2017-05-17] MEDS ORDERED: NALOXONE 0.4 MG/ML 1 ML VIAL IV PRN (20:49)
[2017-05-17] MEDS ORDERED: ONDANSETRON 4 MG/2 ML VIAL IVP PRN (20:49)
[2017-05-17] MEDS ORDERED: ACETAMINOPHEN TAB 325 MG TAB PO STA (21:18)
[2017-05-17 21:48] VITALS: BMI 28.3
[2017-05-17] MEDS: SODIUM CHLORIDE 0.9% 1,000 ML IV SCH (21:57)
[2017-05-18] MEDS ORDERED: PIPERACILLIN-TAZOBACTAM 4.5 GM in DEXTROSE/WATER 1 50ML.BAG IVPB SCH
--- NOTE | 2017-05-18 00:03 | P.HPIM ---
History of Present Illness H&P Date: 05/17/17 Chief Complaint: right lower quadrant abd pain 26-year-old female With history of mild intermittent asthma, presented to the ER day 6 complaining of right lower quadrant abdominal pain described as sharp intermittent pain radiating to the back 10 out of 10 in severity and worse with movement, sound with ibuprofen. This has started 3 days ago but has been associated with fevers today for which she decided come to the hospital. She denies any associated nausea vomiting or changes in her bowel or urinary habits. Patient denies any similar attacks in the past. She denies any trauma. She had normal vaginal delivery a week ago and delivered healthy baby girl. She is not breast-feeding, and still reports some vaginal bleeding during her period. Patient denies any foul smell or vaginal discharge. Patient denies any history of blood clots In the ED patient's had CAT scan of the abdomen performed which suggested thrombosis of the right ovarian vein this was discussed with obstetrics who recommended admission under internal medicine for further management. Venous duplex ultrasound also performed to detect flow which showed no blood flow and elbow pain. Blood cultures were taken in the ED, patient was started on antibiotic anticoagulation and admitted for further care. Review of Systems Constitutional: Patient denies night sweating, denies significant weight changes Eyes: Patient denies visual changes, denies eye pain ENT: Patient denies ear pain, denies rhinorrhea, denies sore throat Cardiovascular: Patient denies chest pain, denies exertional dyspnea, denies peripheral leg edema, denies orthopnea, denies paroxysmal nocturnal dyspnea Respiratory:Patient denies cough, denies wheezing, denies shortness of breath Gastrointestinal: Patient denies diarrhea, denies constipation, denies nausea , denies vomiting Genitourinary: Patient denies dysuria, denies hematuria, denies changes in urinary habits, denies genital lesions Musculoskeletal: Patient denies muscle pain, denies joint pain Psychiatric: Patient denies changes in mood or memory, denies suicidal ideation, denies anxiety Endocrine: Patient denies heat intolerance, denies cold intolerance, denies excessive thirst, denies polyuria Neurological: Patient denies focal neurologic deficits, denies weakness, denies numbness, denies tingling Hem/Lymphatic: Patient denies bleeding tendency, denies bruising, denies swollen lymph glands Allergic/Immun: Patient denies recent allergic reactions Skin: Patient denies rashes, denies pruritis, denies ulcers Past Medical History Past Medical History: Asthma, Rheumatoid Arthritis (RA) Additional Past Medical History / Comment(s): pt hasn't used inhaler since before History of Any Multi-Drug Resistant Organisms: None Reported Past Surgical History: Tonsillectomy Past Anesthesia/Blood Transfusion Reactions: No Reported Reaction Past Psychological History: No Psychological Hx Reported Smoking Status: Current every day smoker Past Alcohol Use History: None Reported Past Drug Use History: None Reported - Past Family History Mother Family Medical History: Asthma, Rheumatoid Arthritis (RA) Medications and Allergies Home Medications Medication Instructions Recorded Confirmed Type Pnv,Calcium 72/Iron/Folic Acid 1 tab PO DAILY 03/06/17 05/17/17 History [ Plus Tablet] Ibuprofen [Motrin Ib] 200 - 800 mg PO Q6H PRN 05/17/17 05/17/17 History Allergies Allergy/AdvReac Type Severity Reaction Status Date / Time No Known Allergies Allergy Verified 05/17/17 16:43 Physical Exam Vitals: Vital Signs Temp Pulse Pulse Resp BP BP Pulse Ox 05/17/17 21:44 99.2 F 89 18 128/79 100 05/17/17 21:37 99.2 F 103 H 24 115/66 100 05/17/17 20:06 97.8 F 89 18 116/83 05/17/17 18:20 98.0 F 81 16 100 05/17/17 16:01 98.4 F 86 20 103/60 98 Intake and Output 05/17/17 05/17/17 05/17/17 06:59 14:59 22:59 Other: Weight 72.57 kg Patient Weight 05/18/17 06:59 Weight 72.57 kg Constitutional: No acute distress, conversant, pleasant Eyes: Anicteric sclerae, moist conjunctiva, no lid-lag Pupils equal round reactive to light Puffiness of the eyelids ENMT: NC/AT Oropharynx clear, no erythema, no exudates tongue piercing in place Neck: Supple, FROM, no masses, or JVD No carotid bruits No thyromegaly Lungs: Clear to auscultation Clear to percussion Normal respiratory effort, no accessory muscle use Cardiovascular: Heart regular in rate and rhythm, No murmurs, gallops, or rubs No peripheral edema Abdominal: Soft Slight tenderness to deep palpation of the right lower quadrant of the abdomen No guarding, rebound or rigidity Uterus palpable below the umbilicus Abdomen moving with respiration Normoactive bowel sounds No hepatomegaly, No splenomegaly No abdominal wall hernia noted Skin: Normal temperature, tone, texture, turgor No induration No subcutaneous nodules No rash, lesions No ulcers Extremities: No digital cyanosis No clubbing Pedal pulses intact and symmetrical Radial pulses intact and symmetrical No calf tenderness Psychiatric: Alert and oriented to person, place and time Appropriate affect fair judgment Neuro Muscles Strength 5/5 in all 4 extremities Sensation to light touch grossly present throughout Cranial nerves II-XII grossly intact No focal sensory deficits Lymphatics: no palpable cervical or supraclavicular , or inguinal lymph nodes Results CBC & Chem 7: 05/17/17 17:15 05/17/17 17:15 Labs: Abnormal Lab Results - Last 24 Hours (Table) 05/17/17 05/17/17 Range/Units 17:15 17:35 RBC 3.45 L (3.80-5.40) m/uL Hgb 10.1 L (11.4-16.0) gm/dL Hct 29.0 L (34.0-46.0) % Urine Appearance Cloudy H (Clear) Urine Protein 1+ H (Negative) Urine Blood Large H (Negative) Ur Leukocyte Esterase Large H (Negative) Urine RBC 179 H (0-5) /hpf Urine WBC 159 H (0-5) /hpf Urine Bacteria Few H (None) /hpf Urine Mucus Many H (None) /hpf Thrombosis Risk Factor Assmnt - Choose All That Apply Each Factor Represents 1 point: Obesity (BMI >25), or Other Risk Factors: Yes Each Risk Factor Represents 3 Points: History of DVT/PE Thrombosis Risk Factor Assessment Total Risk Factor Score: 5 Thrombosis Risk Factor Assessment Level: High Risk Assessment and Plan (1) Thrombosis of ovarian vein Narrative/Plan: Acute right ovarian vein thrombosis day 6 post normal vaginal delivery of healthy baby girl Patient started on Zosyn Full anticoagulation with Lovenox Blood cultures pending Patient should continue on antibiotics until afebrile for at least 48 hours, await final cultures to rule out any bacteremia which might extend the course of the antibiotics Anticoagulation should continue for at least 6 weeks patient should be evaluated as now patient with hematology for any underlyinG disorders that might increase risk of thrombosis OB consult at Pathology consult Current Visit: Yes Status: Acute Code(s): I82.890 - ACUTE EMBOLISM AND THROMBOSIS OF OTHER SPECIFIED VEINS SNOMED Code(s): 67241836 (2) DVT prophylaxis Narrative/Plan: Full anticoagulation due to right ovarian vein thrombosis as above Current Visit: Yes Status: Acute Code(s): WWV1393 - SNOMED Code(s): 084585619 (3) Anemia Narrative/Plan: due to and post bleeding continue with iron supplementation Current Visit: Yes Status: Acute Code(s): D64.9 - ANEMIA, UNSPECIFIED SNOMED Code(s): 295316095 Plan: Preformed a thorough record review from recent hospitalization Patient had recent normal vaginal delivery a week ago Surrogate decision-maker: Patient has been [place] CODE STATUS: Full code DVT prophylaxis: Full anticoagulation with Lovenox Discussed with: Patient, ER, patient family Anticipated discharge: 48-[address]: Home A total of 50 minutes wERE spent on the care of this complex patient more than 50% of the time was spent in counseling and care coordination.
[2017-05-18] MEDS: PIPERACILLIN-TAZOBACTAM 3.375 GM in DEXTROSE/WATER 1 50ML.BAG IVPB SCH ×4 (00:14→23:28)
[2017-05-18] MEDS: MORPHINE SULFATE 4 MG/ML SYRINGE IV PRN ×3 (00:18→08:35)
[2017-05-18] MEDS: ACETAMINOPHEN TAB 325 MG TAB PO PRN ×3 (04:28→19:47)
[2017-05-18 06:48] LABS: Basophils % (A) 0 %; Eosinophils # (A) 0.1 k/uL (0-0.7); Eosinophils % (A) 1 %; HCT 27.3 % (34.0-46.0); HGB 8.8 gm/dL (11.4-16.0); Lymphocytes # (A) 1.3 k/uL (1.0-4.8); Lymphocytes % (A) 15 %; MCH 28.3 pg (25.0-35.0); MCHC 32.4 g/dL (31.0-37.0); MCV 87.4 fL (80.0-100.0); Monocytes # (A) 0.6 k/uL (0-1.0); Monocytes % (A) 7 %; Neutrophils # (A) 6.5 k/uL (1.3-7.7); Neutrophils % (A) 75 %; Platelet Count 268 k/uL (150-450); Poikilocytosis Slight; RBC 3.12 m/uL (3.80-5.40); RDW 13.4 % (11.5-15.5); WBC 8.6 k/uL (3.8-10.6)
[2017-05-18 06:53] LABS: Prothrombin Time 9.9 sec (9.0-12.0)
[2017-05-18 06:55] LABS: ALT 18 U/L (9-52); AST 11 U/L (14-36); Alkaline Phosphatase 77 U/L (38-126); Blood Urea Nitrogen 8 mg/dL (7-17); Calcium 8.1 mg/dL (8.4-10.2); Carbon Dioxide 22 mmol/L (22-30); Glucose 111 mg/dL (74-99); Total Bilirubin 0.3 mg/dL (0.2-1.3); Total Protein 5.5 g/dL (6.3-8.2)
[2017-05-18 07:28] LABS: Anion Gap 10 mmol/L; Chloride 107 mmol/L (98-107); Potassium 3.6 mmol/L (3.5-5.1); Sodium 139 mmol/L (137-145)
[2017-05-18] MEDS: PRENATAL VIT-IRON-FOLIC ACID 1 EACH CAP PO SCH (08:24)
[2017-05-18] MEDS ORDERED: ENOXAPARIN 80 MG/0.8 ML SYRINGE SQ SCH (09:00)
--- NOTE | 2017-05-18 12:02 | P.OBCN ---
History of Present Illness Consult date: 05/18/17 Reason for consult: other (Right ovarian vein thrombosis) Chief complaint: Acute right lower quadrant pain History of present illness: The patient is a 26-year-old multiparous patient who delivered a 80 by normal vaginal delivery a viable baby boy last week, 6 days prior to presentation the emergency room. She apparently had been having some increasing discomfort over the last several days primarily confined to the right lower quadrant but then began to develop much more significant pain and which she felt was a fever. She then presented to the emergency room where she underwent workup at which time appendicitis was ruled out. The computed tomography scan at that time, however, demonstrated right ovarian vein thrombosis. A follow-up pelvic ultrasound confirmed the diagnosis with no evidence of torsion and normal vascular flow otherwise. There was no mass of any kind. Given the findings on the patient's acuity of pain, she was admitted for IV antibiotic therapy and anticoagulation. Today, she reports that her pain is significantly improved from presentation. She has been afebrile from presentation as well. She otherwise denies any other localizing symptoms. She is having a regular diet, has normal bowel and bladder function, and is ambulatory. Vaginal bleeding has increased slightly but not to a significant extent. Obstetrical history: 2 para 2001 with 2 vaginal deliveries without complications. Most recent delivery last week. Gynecologic history unremarkable with no history of any infections to include STDs. Review of Systems Review of systems is confined to history of present illness. Past Medical History Past Medical History: Asthma, Rheumatoid Arthritis (RA) Additional Past Medical History / Comment(s): pt hasn't used inhaler since before History of Any Multi-Drug Resistant Organisms: None Reported Past Surgical History: Tonsillectomy Past Anesthesia/Blood Transfusion Reactions: No Reported Reaction Past Psychological History: No Psychological Hx Reported Smoking Status: Current every day smoker Past Alcohol Use History: None Reported Past Drug Use History: None Reported - Past Family History Mother Family Medical History: Asthma, Rheumatoid Arthritis (RA) Medications and Allergies Home Medications Medication Instructions Recorded Confirmed Type Pnv,Calcium 72/Iron/Folic Acid 1 tab PO DAILY 03/06/17 05/17/17 History [ Plus Tablet] Ibuprofen [Motrin Ib] 200 - 800 mg PO Q6H PRN 05/17/17 05/17/17 History Allergies Allergy/AdvReac Type Severity Reaction Status Date / Time No Known Allergies Allergy Verified 05/17/17 16:43 Exam - Vital Signs Vital signs: Vital Signs Temp Pulse Pulse Resp BP BP Pulse Ox 05/18/17 08:13 98.5 F 94 18 105/71 98 05/18/17 02:10 94 18 05/18/17 00:28 98.6 F 94 18 104/69 96 05/17/17 21:45 94 18 05/17/17 21:44 99.2 F 89 18 128/79 100 05/17/17 21:37 99.2 F 103 H 24 115/66 100 05/17/17 20:06 97.8 F 89 18 116/83 05/17/17 18:20 98.0 F 81 16 100 05/17/17 16:01 98.4 F 86 20 103/60 98 Intake and Output 05/17/17 05/18/17 05/18/17 22:59 06:59 14:59 Intake Total 200 200 Output Total 350 350 Balance -150 -350 200 Intake: Oral 200 200 Output: Urine 350 350 Other: Voiding Method Toilet Toilet Weight 72.57 kg In general, this is a well-developed, well-nourished white female in no acute distress. Her heart has a regular rhythm and rate without murmur. Her lungs are clear to auscultation bilaterally in all luong. Her abdomen is nondistended, has normal active bowel sounds, soft, and without any palpable masses aside from uterine fundus which is palpable well below the umbilicus. Uterine fundus is tonic and nontender. There is some mild right lower quadrant tenderness without guarding or rebound. Her extremities are without any cyanosis, clubbing, or edema and are nontender to palpation bilaterally. Pelvic examination is deferred as it is unlikely to yield any important information. Results Result Diagrams: 05/18/17 06:08 05/18/17 06:08 Abnormal Lab Results - Last 24 Hours (Table) 05/17/17 05/17/17 05/18/17 Range/Units 17:15 17:35 06:08 RBC 3.45 L 3.12 L (3.80-5.40) m/uL Hgb 10.1 L 8.8 L (11.4-16.0) gm/dL Hct 29.0 L 27.3 L (34.0-46.0) % Glucose (74-99) mg/dL Calcium (8.4-10.2) mg/dL AST (14-36) U/L Total Protein (6.3-8.2) g/dL Albumin (3.5-5.0) g/dL Urine Appearance Cloudy H (Clear) Urine Protein 1+ H (Negative) Urine Blood Large H (Negative) Ur Leukocyte Esterase Large H (Negative) Urine RBC 179 H (0-5) /hpf Urine WBC 159 H (0-5) /hpf Urine Bacteria Few H (None) /hpf Urine Mucus Many H (None) /hpf 05/18/17 Range/Units 06:08 RBC (3.80-5.40) m/uL Hgb (11.4-16.0) gm/dL Hct (34.0-46.0) % Glucose 111 H (74-99) mg/dL Calcium 8.1 L (8.4-10.2) mg/dL AST 11 L (14-36) U/L Total Protein 5.5 L (6.3-8.2) g/dL Albumin 3.0 L (3.5-5.0) g/dL Urine Appearance (Clear) Urine Protein (Negative) Urine Blood (Negative) Ur Leukocyte Esterase (Negative) Urine RBC (0-5) /hpf Urine WBC (0-5) /hpf Urine Bacteria (None) /hpf Urine Mucus (None) /hpf Assessment and Plan (1) Thrombosis of ovarian vein Current Visit: Yes Status: Acute Code(s): I82.890 - ACUTE EMBOLISM AND THROMBOSIS OF OTHER SPECIFIED VEINS SNOMED Code(s): 20232908 Plan: In my review of literature, it is my understanding that the patient should be kept in the hospital under her specific circumstances with IV antibiotic coverage until afebrile for 24-48 hours. Anticoagulation has been started and, by nursing report, hematology consultation has been initiated with a plan in place for outpatient anticoagulation. I have discussed all of the pertinent findings and the plan as I understand it with the patient and her significant other. Should she remain afebrile, she will likely be discharged home tomorrow as she has already had significant clinical improvement. I will otherwise follow her at a distance as there is nothing further for obstetrics or gynecology to add to the current plan. Please contact us if you should wish further involvement or input.
[2017-05-18] MEDS ORDERED: SODIUM CHLORIDE 0.9% 1,000 ML IV ONE (13:35)
--- NOTE | 2017-05-18 13:42 | P.PN ---
Subjective Progress Note Date: 05/18/17 Objective - Vital Signs Vital signs: Vital Signs Temp 100.3 F H 05/18/17 11:55 Pulse 110 H 05/18/17 11:55 Resp 18 05/18/17 11:55 BP 124/82 05/18/17 11:55 Pulse Ox 97 05/18/17 11:55 Intake & Output 05/17/17 05/18/17 05/18/17 18:59 06:59 18:59 Intake Total 200 200 Output Total 700 Balance -500 200 Weight 72.575 kg 72.57 kg Intake: Oral 200 200 Output: Urine 700 Other: Voiding Method Toilet - Exam Constitutional: No acute distress, conversant, pleasant Eyes: Anicteric sclerae, moist conjunctiva, no lid-lag, PERRLA ENMT: NC/AT,Oropharynx clear, no erythema, exudates Neck:Supple, FROM, no masses, or JVD, No carotid bruits; No thyromegaly Lungs: Clear to auscultation, Clear to percussion, Normal respiratory effort, no accessory muscle use Cardiovascular: Heart regular in rate and rhythm, No murmurs, gallops, or rubs no peripheral edema Abdominal: Soft Nontender, nom distended, no guarding, no rebound or rigidity, Normoactive bowel sounds No hepatomegaly, No splenomegaly, No palpable mass No abdominal wall hernia noted Skin: Normal temperature, tone, texture, turgor, No induration No subcutaneous nodules, No rash, lesions, No ulcers Extremities:No digital cyanosis No clubbing, Pedal pulses intact and symmetrical Radial pulses intact and symmetrical Normal gait and station, No calf tenderness Psychiatric: Alert and oriented to person, place and time, Appropriate affect Intact judgement Neuro: Muscles Strength 5/5 in all 4 extremities, Sensation to light touch grossly present throughout, Cranial nerves II-XII grossly intact. No focal sensory deficits - Labs CBC & Chem 7: 05/18/17 06:08 05/18/17 06:08 Labs: Abnormal Lab Results - Last 24 Hours (Table) 05/17/17 05/17/17 05/18/17 Range/Units 17:15 17:35 06:08 RBC 3.45 L 3.12 L (3.80-5.40) m/uL Hgb 10.1 L 8.8 L (11.4-16.0) gm/dL Hct 29.0 L 27.3 L (34.0-46.0) % Glucose (74-99) mg/dL Calcium (8.4-10.2) mg/dL AST (14-36) U/L Total Protein (6.3-8.2) g/dL Albumin (3.5-5.0) g/dL Urine Appearance Cloudy H (Clear) Urine Protein 1+ H (Negative) Urine Blood Large H (Negative) Ur Leukocyte Esterase Large H (Negative) Urine RBC 179 H (0-5) /hpf Urine WBC 159 H (0-5) /hpf Urine Bacteria Few H (None) /hpf Urine Mucus Many H (None) /hpf 05/18/17 Range/Units 06:08 RBC (3.80-5.40) m/uL Hgb (11.4-16.0) gm/dL Hct (34.0-46.0) % Glucose 111 H (74-99) mg/dL Calcium 8.1 L (8.4-10.2) mg/dL AST 11 L (14-36) U/L Total Protein 5.5 L (6.3-8.2) g/dL Albumin 3.0 L (3.5-5.0) g/dL Urine Appearance (Clear) Urine Protein (Negative) Urine Blood (Negative) Ur Leukocyte Esterase (Negative) Urine RBC (0-5) /hpf Urine WBC (0-5) /hpf Urine Bacteria (None) /hpf Urine Mucus (None) /hpf Assessment and Plan (1) Thrombosis of ovarian vein Narrative/Plan: * Acute right ovarian vein thrombosis day 6 post normal vaginal delivery of healthy baby girl * Patient has been febrile will continue the patient on Zosyn, blood cultures are pending * Full anticoagulation with Xarelto per hematology recommendations from Dr. Bermeo for approximately 4 months * Patient should continue on antibiotics until afebrile for at least 48 hours, await final cultures to rule out any bacteremia which might extend the course of the antibiotics Current Visit: Yes Status: Acute Code(s): I82.890 - ACUTE EMBOLISM AND THROMBOSIS OF OTHER SPECIFIED VEINS SNOMED Code(s): 98745921 (2) Fever Narrative/Plan: * Possibly secondary to thrombophlebitis versus due to acute ovarian vein thrombosis * We'll consult ID for further recommendations Current Visit: Yes Status: Acute Code(s): R50.9 - FEVER, UNSPECIFIED SNOMED Code(s): 014384982 (3) Anemia Narrative/Plan: * due to and post bleeding continue with iron supplementation Current Visit: Yes Status: Acute Code(s): D64.9 - ANEMIA, UNSPECIFIED SNOMED Code(s): 839369265
[2017-05-18] MEDS ORDERED: MORPHINE ORAL SOLN 10 MG/5 ML CUP PO PRN (14:18)
[2017-05-18] MEDS: SODIUM CHLORIDE 0.9% 1,000 ML IV SCH ×3 (15:47→23:29)
[2017-05-18] MEDS ORDERED: RIVAROXABAN 15 MG TAB PO SCH ×2 (17:30)
--- NOTE | 2017-05-18 19:27 | P.CONS ---
History of Present Illness - Reason for Consult Consult date: 05/18/17 Post Right Ovarian Thrombosis - Chief Complaint Pain - History of Present Illness This is a pleasant 26 year old female 8 days post vaginal delivery. She presented with pain in lower pelvis area and scan revealed right ovarian thrombosis. She denies any history of previous clots, no known family history of clotting disorders. She is an everyday smoker (through ). SHe is not currently on control. She is not breast feeding at this time. She has had 4 pregnancies, 2 live births. One healthy son prior to the recent of her daughter, no complications with previous . She denies any noticed increased bleeding, still with post vaginal bleeding. She was started on lovenox on admission. Her hemoglobin has decreased since initiation of anticoagulation therapy, although no considerable increase in bleeding per patient. No increased lower extremity or upper extremity swelling. No headaches or changes in vision, no Shortness of breath. Review of Systems A 14 point review of systems assessed and completed and all neg except HPI Constitutional: Reports fatigue Past Medical History Past Medical History: Asthma, Rheumatoid Arthritis (RA) Additional Past Medical History / Comment(s): pt hasn't used inhaler since before History of Any Multi-Drug Resistant Organisms: None Reported Past Surgical History: Tonsillectomy Past Anesthesia/Blood Transfusion Reactions: No Reported Reaction Past Psychological History: No Psychological Hx Reported Smoking Status: Current every day smoker Past Alcohol Use History: None Reported Past Drug Use History: None Reported - Past Family History Mother Family Medical History: Asthma, Rheumatoid Arthritis (RA) Medications and Allergies Home Medications Medication Instructions Recorded Confirmed Type Pnv,Calcium 72/Iron/Folic Acid 1 tab PO DAILY 03/06/17 05/17/17 History [ Plus Tablet] Ibuprofen [Motrin Ib] 200 - 800 mg PO Q6H PRN 05/17/17 05/17/17 History Allergies Allergy/AdvReac Type Severity Reaction Status Date / Time No Known Allergies Allergy Verified 05/17/17 16:43 Physical Exam Vitals: Vital Signs Temp Pulse Pulse Resp BP BP BP 05/18/17 15:49 99.7 F H 90 18 114/75 05/18/17 11:55 100.3 F H 110 H 18 124/82 05/18/17 08:13 98.5 F 94 18 105/71 05/18/17 02:10 94 18 05/18/17 00:28 98.6 F 94 18 104/69 05/17/17 21:45 94 18 05/17/17 21:44 99.2 F 89 18 128/79 05/17/17 21:37 99.2 F 103 H 24 115/66 05/17/17 20:06 97.8 F 89 18 116/83 05/17/17 18:20 98.0 F 81 16 Pulse Ox 05/18/17 15:49 97 05/18/17 11:55 97 05/18/17 08:13 98 05/18/17 02:10 05/18/17 00:28 96 05/17/17 21:45 05/17/17 21:44 100 05/17/17 21:37 100 05/17/17 20:06 05/17/17 18:20 100 Intake and Output 05/18/17 05/18/17 05/18/17 06:59 14:59 22:59 Intake Total 500 Output Total 350 Balance -350 500 Intake: Oral 500 Output: Urine 350 Other: Voiding Method Toilet # Bowel Movements 0 - Constitutional General appearance: no acute distress, obese - EENT Eyes: poor dentition, normal appearance ENT: NA/AT, normal oropharynx - Neck Supple, Trachea midline Neck: normal ROM - Respiratory No increased respiratory effort noted Respiratory: bilateral: CTA - Cardiovascular Heart rate: 110 Rhythm: regular Heart sounds: normal: S1, S2 - Gastrointestinal General gastrointestinal: normal bowel sounds, soft Localized gastrointestinal: tender: RLQ - Integumentary Integumentary: pale - Neurologic no focal defects - Musculoskeletal Musculoskeletal: gait normal - Psychiatric Psychiatric: A&O x's 3, appropriate affect, intact judgment & insight Results CBC & Chem 7: 05/18/17 06:08 05/18/17 06:08 Labs: Abnormal Lab Results - Last 24 Hours (Table) 05/17/17 05/17/17 05/18/17 Range/Units 17:15 17:35 06:08 RBC 3.45 L 3.12 L (3.80-5.40) m/uL Hgb 10.1 L 8.8 L (11.4-16.0) gm/dL Hct 29.0 L 27.3 L (34.0-46.0) % Glucose (74-99) mg/dL Calcium (8.4-10.2) mg/dL AST (14-36) U/L Total Protein (6.3-8.2) g/dL Albumin (3.5-5.0) g/dL Urine Appearance Cloudy H (Clear) Urine Protein 1+ H (Negative) Urine Blood Large H (Negative) Ur Leukocyte Esterase Large H (Negative) Urine RBC 179 H (0-5) /hpf Urine WBC 159 H (0-5) /hpf Urine Bacteria Few H (None) /hpf Urine Mucus Many H (None) /hpf 05/18/17 Range/Units 06:08 RBC (3.80-5.40) m/uL Hgb (11.4-16.0) gm/dL Hct (34.0-46.0) % Glucose 111 H (74-99) mg/dL Calcium 8.1 L (8.4-10.2) mg/dL AST 11 L (14-36) U/L Total Protein 5.5 L (6.3-8.2) g/dL Albumin 3.0 L (3.5-5.0) g/dL Urine Appearance (Clear) Urine Protein (Negative) Urine Blood (Negative) Ur Leukocyte Esterase (Negative) Urine RBC (0-5) /hpf Urine WBC (0-5) /hpf Urine Bacteria (None) /hpf Urine Mucus (None) /hpf CT scan - abdomen: report reviewed CT scan - pelvis: report reviewed US - abdomen: report reviewed Assessment and Plan (1) Thrombosis of ovarian vein Narrative/Plan: 1. This is a known , but uncommon complication of , with this typical presentation in the post period. Anticoagulation therapy is recommended. Discussed risks and benefits with patient. We will attempt to order xarelto for discharge for patient, rx has been given to [facility] to check insurance coverage. Patient is not breast feeding and does not plan to become or have anymore children. Since she is newly post she has been advised to follow-up with [employer] regarding control methods, would recommend a non-estrogen based therap i.e. IUD. 2. Risks of breast feeding and or while on anticoagulation like Xarelto were discussed with patient. She and her state an understanding. Monitoring for bleeding also discussed 3. Plan for Anticoagulation therapy minimum of 3 months, potential of 6 months. She has been advised to follow-up in office after discharge to obtain hypercoagulable work-up as the scan shows potential for chronic or previous clot. Unknown if this is a second recurrence so a hypercoagulable work-up is resonable to assess her future risks. Current Visit: Yes Status: Acute Code(s): I82.890 - ACUTE EMBOLISM AND THROMBOSIS OF OTHER SPECIFIED VEINS SNOMED Code(s): 11504799 (2) Anemia Narrative/Plan: Secondary to acute blood loss post and with anticoagulation therapy Monitor CBC while inpt. I will also repeat on f/u Current Visit: Yes Status: Acute Code(s): D64.9 - ANEMIA, UNSPECIFIED SNOMED Code(s): 847165510 (3) Smoker Narrative/Plan: 1. The increased risk for thrombosis especially in smokers discussed. HIghly reccomended cessation. Risk and benefots discussed. Current Visit: Yes Status: Acute Code(s): F17.200 - NICOTINE DEPENDENCE, UNSPECIFIED, UNCOMPLICATED SNOMED Code(s): 17783650
[2017-05-18] MEDS: RIVAROXABAN 15 MG TAB PO SCH (21:01)
[2017-05-19] MEDS: SODIUM CHLORIDE 0.9% 1,000 ML IV SCH (07:00)
[2017-05-19] MEDS: PIPERACILLIN-TAZOBACTAM 3.375 GM in DEXTROSE/WATER 1 50ML.BAG IVPB SCH (07:16)
[2017-05-19] MEDS: RIVAROXABAN 15 MG TAB PO SCH ×2 (07:36→17:30)
[2017-05-19 09:50] LABS: Basophils % (A) 0 %; Eosinophils # (A) 0.1 k/uL (0-0.7); Eosinophils % (A) 2 %; HCT 25.1 % (34.0-46.0); HGB 8.5 gm/dL (11.4-16.0); Lymphocytes # (A) 1.2 k/uL (1.0-4.8); Lymphocytes % (A) 19 %; MCHC 33.8 g/dL (31.0-37.0); MCV 85.9 fL (80.0-100.0); Mean Platelet Volume 7.8; Monocytes # (A) 0.4 k/uL (0-1.0); Monocytes % (A) 7 %; Neutrophils # (A) 4.7 k/uL (1.3-7.7); Neutrophils % (A) 72 %; Platelet Count 262 k/uL (150-450); Poikilocytosis Slight; RBC 2.93 m/uL (3.80-5.40); RDW 13.4 % (11.5-15.5); WBC 6.5 k/uL (3.8-10.6)
[2017-05-19] MEDS ORDERED: DOCUSATE 100 MG CAP PO SCH (10:30)
--- NOTE | 2017-05-19 11:12 | P.CONS ---
History of Present Illness - Reason for Consult Consult date: 05/19/17 Antibiotic guidance - History of Present Illness This is a 26-year-old female who presented to [facility] emergency center on May 17, 6 day post vaginal delivery with no complications. Patient was complaining of right lower quadrant and right flank pain that been going on for 2 days and constant. She was also feeling fever and chills at home for a day. She denied any foul-smelling vaginal discharge. She did have minor vaginal bleeding. Patient denied having any dysuria. She underwent a CAT scan of the abdomen and pelvis that showed a right lower quadrant inflammatory change with fat stranding and fluid and dilated thrombosed right ovarian vein. She underwent a pelvic ultrasound which confirmed the same. There was arterial flow in both ovaries. No evidence of ovarian torsion. No there are varicose veins around the right ovary. Few varicose veins around the left ovary. Venous flow in the right adnexal region but the right ovarian vein flowing to the inferior vena cava is not demonstrated. Left ovarian vein appears normal. Enlarged uterus related to recent . Minimal endometrial fluid consistent with recent delivery. Patient was given pain on dose of ceftriaxone followed by Zosyn and started on Lovenox and admitted to the pediatric unit. Her temperature max was 101.3 on the evening of May 18, white count 10.1, hemoglobin 10.1, creatinine 0.61. Urinalysis cloudy leukoesterase large, RBCs 179, bacteria few. Blood cultures no growth after 24 hours. Patient has been seen by Dr. Gamble and Dr. Bermeo. Patient has been transitioned to [facility] with plan for outpatient hypercoagulopathy workup. Patient is a smoker of less than 5 per day and is planning to quit smoking. Patient has occasional cough that is nonproductive. She has occasional nausea without vomiting. She has a small amount of vaginal bleeding. She denies any rashes or skin abscesses or abnormalities. She is complaining of constipation and has not had a bowel movement since admission. Patient states that she is hoping to go home today. She is not planning to breast-feed. Review of Systems All systems: negative Constitutional: Reports chills, Reports fever, Denies anorexia, Denies malaise, Denies poor appetite, Denies weight loss Eyes: denies blurred vision, denies pain Ears, nose, mouth and throat: Denies dental pain, Denies dysphagia, Denies headache, Denies mouth pain, Denies sore throat Cardiovascular: Denies chest pain, Denies decreased exercise tolerance, Denies dyspnea on exertion, Denies edema, Denies leg edema, Denies lightheadedness, Denies shortness of breath, Denies syncope Respiratory: Reports cough, Denies cough with sputum, Denies dyspnea, Denies excessive sputum, Denies hemoptysis, Denies home oxygen, Denies wheezing Gastrointestinal: Reports abdominal pain, Reports constipation, Reports nausea, Denies diarrhea, Denies vomiting Genitourinary: Denies dysuria, Denies hematuria, Denies urgency, Denies vaginal discharge Musculoskeletal: Denies myalgias Integumentary: Denies pruritus, Denies rash, Denies wounds Neurological: Denies numbness, Denies weakness Psychiatric: Denies anxiety, Denies depression Endocrine: Denies fatigue, Denies weight change Past Medical History Past Medical History: Asthma, Rheumatoid Arthritis (RA) Additional Past Medical History / Comment(s): pt hasn't used inhaler since before , she states she was diagnosed with rheumatoid arthritis when she was 14 years old and only treated with naproxen which she has not taken any years History of Any Multi-Drug Resistant Organisms: None Reported Past Surgical History: Tonsillectomy Past Anesthesia/Blood Transfusion Reactions: No Reported Reaction Past Psychological History: No Psychological Hx Reported Smoking Status: Current every day smoker Past Alcohol Use History: None Reported Additional Past Alcohol Use History / Comment(s): Patient is a smoker of less than 5 cigarettes per day since she was 17 years of age. She denies any medical marijuana, marijuana, street drug or alcohol use. She lives at home with her . Past Drug Use History: None Reported - Past Family History Mother Family Medical History: Asthma, Rheumatoid Arthritis (RA) Medications and Allergies Home Medications Medication Instructions Recorded Confirmed Type Pnv,Calcium 72/Iron/Folic Acid 1 tab PO DAILY 03/06/17 05/17/17 History [ Plus Tablet] Ibuprofen [Motrin Ib] 200 - 800 mg PO Q6H PRN 05/17/17 05/17/17 History Allergies Allergy/AdvReac Type Severity Reaction Status Date / Time No Known Allergies Allergy Verified 05/17/17 16:43 Physical Exam Vitals: Vital Signs Temp Pulse Pulse Resp BP BP Pulse Ox 05/19/17 08:27 98.4 F 05/19/17 07:20 76 16 05/19/17 06:56 99.7 F H 76 16 112/77 98 05/19/17 00:00 99.1 F 85 18 118/68 97 05/18/17 20:07 101.3 F H 87 20 114/68 98 05/18/17 15:49 99.7 F H 90 18 114/75 97 05/18/17 11:55 100.3 F H 110 H 18 124/82 97 Intake and Output 05/18/17 05/19/17 05/19/17 22:59 06:59 14:59 Intake Total 1200 250 Output Total 780 600 Balance -780 1200 -350 Intake: Oral 1200 250 Output: Urine 780 600 Other: Voiding Method Toilet # Voids 1 1 Gen: This is a 26-year-old female patient. She is sleeping and arouses easily. She appears to be in no acute distress. HEENT: Head is atraumatic, normocephalic. Pupils equal, round. Sclerae is anicteric. Conjunctiva pink. Mucous membranes of the mouth are moist. Patient has a midline piercing in the tongue. No thrush noted. NECK: Supple. No JVD. No lymphadenopathy. No thyromegaly. LUNGS: Clear to auscultation. No wheezes or rhonchi. No intercostal retractions. HEART: Regular rate and rhythm. No murmur. ABDOMEN: Soft. Bowel sounds are present. No masses. Mild generalized tenderness. EXTREMITIES: No pedal edema. No calf tenderness. Dorsalis pedis +2 bilaterally. SKIN: Patient has extensive tattooing on extremities and torso. No rashes noted. NEUROLOGICAL: Patient is awake, alert and oriented x3. Cranial nerves 2 through 12 are grossly intact. Results Results: Laboratory Results WBC 6.5 k/uL (3.8-10.6) 05/19/17 09:36 RBC 2.93 m/uL (3.80-5.40) L 05/19/17 09:36 Hgb 8.5 gm/dL (11.4-16.0) L 05/19/17 09:36 Hct 25.1 % (34.0-46.0) L 05/19/17 09:36 MCV 85.9 fL (80.0-100.0) 05/19/17 09:36 MCH 29.0 pg (25.0-35.0) 05/19/17 09:36 MCHC 33.8 g/dL (31.0-37.0) 05/19/17 09:36 RDW 13.4 % (11.5-15.5) 05/19/17 09:36 Plt Count 262 k/uL (150-450) 05/19/17 09:36 Neutrophils % 72 % 05/19/17 09:36 Lymphocytes % 19 % 05/19/17 09:36 Monocytes % 7 % 05/19/17 09:36 Eosinophils % 2 % 05/19/17 09:36 Basophils % 0 % 05/19/17 09:36 Neutrophils # 4.7 k/uL (1.3-7.7) 05/19/17 09:36 Lymphocytes # 1.2 k/uL (1.0-4.8) 05/19/17 09:36 Monocytes # 0.4 k/uL (0-1.0) 05/19/17 09:36 Eosinophils # 0.1 k/uL (0-0.7) 05/19/17 09:36 Basophils # 0.0 k/uL (0-0.2) 05/19/17 09:36 Poikilocytosis Slight 05/19/17 09:36 PT 9.9 sec (9.0-12.0) 05/18/17 06:08 INR 1.0 (<1.2) 05/18/17 06:08 Sodium 139 mmol/L (137-145) 05/18/17 06:08 Potassium 3.6 mmol/L (3.5-5.1) 05/18/17 06:08 Chloride 107 mmol/L (98-107) 05/18/17 06:08 Carbon Dioxide 22 mmol/L (22-30) 05/18/17 06:08 Anion Gap 10 mmol/L 05/18/17 06:08 BUN 8 mg/dL (7-17) 05/18/17 06:08 Creatinine 0.61 mg/dL (0.52-1.04) 05/18/17 06:08 Est GFR (MDRD) Af Amer >60 (>60 ml/min/1.73 sqM) 05/18/17 06:08 Est GFR (MDRD) Non-Af >60 (>60 ml/min/1.73 sqM) 05/18/17 06:08 Glucose 111 mg/dL (74-99) H 05/18/17 06:08 Plasma Lactic Acid Luis 0.7 mmol/L (0.7-2.0) 05/17/17 17:15 Calcium 8.1 mg/dL (8.4-10.2) L 05/18/17 06:08 Magnesium 1.7 mg/dL (1.6-2.3) 05/18/17 06:08 Total Bilirubin 0.3 mg/dL (0.2-1.3) 05/18/17 06:08 AST 11 U/L (14-36) L 05/18/17 06:08 ALT 18 U/L (9-52) 05/18/17 06:08 Alkaline Phosphatase 77 U/L (38-126) 05/18/17 06:08 Total Protein 5.5 g/dL (6.3-8.2) L 05/18/17 06:08 Albumin 3.0 g/dL (3.5-5.0) L 05/18/17 06:08 Amylase 54 U/L (30-110) 05/17/17 17:15 Lipase 105 U/L (23-300) 05/17/17 17:15 Urine Color Yellow 05/17/17 17:35 Urine Appearance Cloudy (Clear) H 05/17/17 17:35 Urine pH 6.0 (5.0-8.0) 05/17/17 17:35 Ur Specific [place] 1.023 (1.001-1.035) 05/17/17 17:35 Urine Protein 1+ (Negative) H 05/17/17 17:35 Urine Glucose (UA) Negative (Negative) 05/17/17 17:35 Urine Ketones Negative (Negative) 05/17/17 17:35 Urine Blood Large (Negative) H 05/17/17 17:35 Urine Nitrite Negative (Negative) 05/17/17 17:35 Urine Bilirubin Negative (Negative) 05/17/17 17:35 Urine Urobilinogen <2.0 mg/dL (<2.0) 05/17/17 17:35 Ur Leukocyte Esterase Large (Negative) H 05/17/17 17:35 Urine RBC 179 /hpf (0-5) H 05/17/17 17:35 Urine WBC 159 /hpf (0-5) H 05/17/17 17:35 Ur Squamous Epith Cells 3 /hpf (0-4) 05/17/17 17:35 Urine Bacteria Few /hpf (None) H 05/17/17 17:35 Urine Mucus Many /hpf (None) H 05/17/17 17:35 CBC & Chem 7: 05/19/17 09:36 05/18/17 06:08 Labs: Abnormal Lab Results - Last 24 Hours (Table) 05/19/17 Range/Units 09:36 RBC 2.93 L (3.80-5.40) m/uL Hgb 8.5 L (11.4-16.0) gm/dL Hct 25.1 L (34.0-46.0) % Microbiology - Last 24 Hours (Table) 05/17/17 19:45 Blood Culture - Preliminary Blood No Growth after 24 hours Assessment and Plan Plan: This is a 26-year-old female patient who presented to the hospital with abdominal and flank pain and 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 Patient has been transitioned to Xarelto and will be following up with Dr. Bermeo for hypercoagulopathy workup. We will also add in hepatitis viral panel as hepatitis C can cause hypercoagulopathy date. Otherwise regarding fevers, patient would be expected to run fevers for the next 7 days secondary to the thrombosis. Will change Tylenol to be scheduled. No source of infection. Patient denies any urinary symptoms for urinary tract infection and Zosyn will be discontinued. Continue supportive care. Further recommendations patient progresses. The above dictated assessment and findings were discussed with Dr. Summers. The impression and plan of care have been directed as dictated. Rosemarie Wall nurse practitioner acting as scribe for Dr. Summers.
[2017-05-19] MEDS: PRENATAL VIT-IRON-FOLIC ACID 1 EACH CAP PO SCH (12:04)
[2017-05-19] MEDS: ACETAMINOPHEN TAB 325 MG TAB PO SCH ×2 (12:09→17:30)
--- NOTE | 2017-05-19 12:11 | P.DS ---
Providers Date of admission: 05/17/17 20:49 Attending physician: Elijah Benjamin MD Consults: 05/17/17 20:50 Consult Physician Urgent Consulting Provider: Joe Gomez Consult Reason/Comments: Infected thrombosed ovarian vein Do you want consulting provider notified?: Already Contacted 05/17/17 23:31 Consult Physician Routine Consulting Provider: Garrison Bermeo Consult Reason/Comments: right ovarian vein thrombosis for recommendations Do you want consulting provider notified?: Yes, Notify in am 05/18/17 13:40 Consult Physician Routine Consulting Provider: Sanchez Summers Consult Reason/Comments: Antibiotic guidance Do you want consulting provider notified?: Yes Primary care physician: Stated None - Discharge Diagnosis(es) (1) Thrombosis of ovarian vein Current Visit: Yes Status: Acute (2) Fever Current Visit: Yes Status: Acute (3) Anemia Current Visit: Yes Status: Acute Hospital Course: This is a 26-year-old female that was 8 days vaginal delivery at presented with right lower pelvic pain that was found to have a acute right ovarian vein thrombus and was admitted for anticoagulation and pain control, she was initially started on Lovenox and later switched to Xarelto by Dr. Bermeo To be continued for 3-6 months, with plans for hypercoagulable workup in his clinic. The patient was noted to have fevers and was started on empiric IV antibiotics with Rocephin and later switched to Zosyn for possible underlying urinary tract infection as her urinalysis was grossly abnormal with white cells and bacteria, the patient was seen by ID and decided to stop her antibiotics as a patient was having no urinary tract symptoms. The lithotomy patient's intermittent fevers are secondary to her acute ovarian vein thrombosis and that can continue up to 7 days, they recommended the patient could be discharged home with supportive therapy for her fevers such as tylenol and ibuprofen. The patient was subsequently discharged home in stable condition told to follow-up with Dr. Bermeo in 3 weeks and with new prescriptions for Xarelto starter pack. This discharge process took approximately 35 minutes Patient Condition at Discharge: Stable Plan - Discharge Summary Discharge Rx Participant: Yes New Discharge Prescriptions: No Action Pnv,Calcium 72/Iron/Folic Acid [ Plus Tablet] 1 tab PO DAILY Ibuprofen [Motrin Ib] 200 - 800 mg PO Q6H PRN PRN Reason: Pain Discharge Medication List Pnv,Calcium 72/Iron/Folic Acid [ Plus Tablet] 1 tab PO DAILY 03/06/17 [ History] Ibuprofen [Motrin Ib] 200 - 800 mg PO Q6H PRN 05/17/17 [History] Follow up Appointment(s)/Referral(s): Garrison Bermeo MD [STAFF PHYSICIAN] - 3 Weeks None,Stated [Primary Care Provider] - 1-2 days Activity/Diet/Wound Care/Special Instructions: Script for Xarelto starter pack ready for vegetable picker/delivery from [facility] - $10 copay Discharge Disposition: HOME SELF-CARE
[2017-05-19 16:50] VITALS: BP 111/65; PULSE 69; RESP 18; TEMP 98.9
[2017-05-19 20:20] LABS: Hepatitis A Antibody IgM Non-Reactive (Non-Reactive); Hepatitis B Core IgM Non-Reactive (Non-Reactive)
--- NOTE | 2017-05-19 21:40 | P.CON ---
Consult Note - . Consult date: 05/19/17 Assessment/Plan:: This is a 26-year-old female who presented to [facility] emergency center on May 17, 6 day post vaginal delivery with no complications. Patient was complaining of right lower quadrant and right flank pain that been going on for 2 days and constant. She was also feeling fever and chills at home for a day. She denied any foul-smelling vaginal discharge. She did have minor vaginal bleeding. Patient denied having any dysuria. She underwent a CAT scan of the abdomen and pelvis that showed a right lower quadrant inflammatory change with fat stranding and fluid and dilated thrombosed right ovarian vein. She underwent a pelvic ultrasound which confirmed the same. There was arterial flow in both ovaries. No evidence of ovarian torsion. No there are varicose veins around the right ovary. Few varicose veins around the left ovary. Venous flow in the right adnexal region but the right ovarian vein flowing to the inferior vena cava is not demonstrated. Left ovarian vein appears normal. Enlarged uterus related to recent . Minimal endometrial fluid consistent with recent delivery. Patient was given pain on dose of ceftriaxone followed by Zosyn and started on Lovenox and admitted to the pediatric unit. Her temperature max was 101.3 on the evening of May 18, white count 10.1, hemoglobin 10.1, creatinine 0.61. Urinalysis cloudy leukoesterase large, RBCs 179, bacteria few. Blood cultures no growth after 24 hours. Patient has been seen by Dr. Gamble and Dr. Bermeo. Patient has been transitioned to [facility] with plan for outpatient hypercoagulopathy workup. Patient is a smoker of less than 5 per day and is planning to quit smoking. Patient has occasional cough that is nonproductive. She has occasional nausea without vomiting. She has a small amount of vaginal bleeding. She denies any rashes or skin abscesses or abnormalities. She is complaining of constipation and has not had a bowel movement since admission. Patient states that she is hoping to go home today. She is not planning to breast-feed. Please see the consult note is dictated by nurse practitioner Rosemarie Wall. Puzzlement is status post normal spontaneous vaginal delivery 6 days before her admission. She developed a significant abdominal pain. Imaging study revealed evidence of the thrombosed right ovarian vein. It is noted from hematology this is a known Application of . She does have a history of a fever that is improving. Of note she has been a tobacco smoker and has also been on hormonal therapy. She is advised to discontinue both of these. Is advised that she will not to be able to use hormonal therapy and will need to seek care with her healthcare network pricing consultant for IUD placement or similar means for prevention. She is in need of no antibiotic therapy that her fever is a common occurrence with her ovarian vein thrombosis and may utilize Tylenol for discomfort relief and fever control. She may have fever for up to 7 days should be progressively improving over that timeframe. She will follow up with hematology oncology after discharge and after she has been treated for the thrombosis for any further hypercoagulable workup. I agree with evaluation, assessment and plan is dictated by nurse practitioner Mrs. Rosemarie Wall.
== END 2017-05-19 18:32 | disposition home or self-care (01) | DRG 776 ==
LOC: EC 15:59 → 6PED 20:49
PROVIDERS: ADMIT Internal Medicine; ATTEND Internal Medicine
DX: O87.1 Deep phlebothrombosis in the puerperium (principal); J45.20 Mild intermittent asthma, uncomplicated; F17.200 Nicotine dependence, unspecified, uncomplicated; O90.81 Anemia of the puerperium; O99.335 Smoking (tobacco) complicating the puerperium; Z71.6 Tobacco abuse counseling; O99.53 Diseases of the respiratory system complicating the puerperium; K59.00 Constipation, unspecified; O90.89 Other complications of the puerperium, not elsewhere classified
CPT/HCPCS: 36415; 74177; 76856; 80053; 80074; 81001; 82150; 83605; 83690; 83735; 85025; 85610; 87040; 93975; 96361; 96372; 96374; 96375; 99285

== ENCOUNTER → 2017-08-08 | Outpatient (CLI) | payer OTHER ==
--- NOTE | 2017-08-08 15:34 | CT ---
EXAMINATION TYPE: CT abdomen pelvis w con DATE OF EXAM: 08/08/2017 COMPARISON: 05/17/2017 HISTORY: 26-year-old female Thrombosis of ovarian vein. Patient on blood thinners, follow up to see i f she can stop them. TECHNIQUE: Contiguous axial scanning of the abdomen and pelvis following administration of 100 ml Iso tushar 300 IV contrast. Delayed images through the kidneys and coronal/sagittal reconstructions perform ed. CT DLP: 458.2 mGycm Automated exposure control for dose reduction was used. FINDINGS: Heart normal size without pericardial effusion. Lung bases clear without pleural effusion. No focal liver lesion or biliary ductal dilatation. Portal venous system is patent. Gallbladder, adrenal glands, kidneys, spleen, and pancreas appear within normal limits. No dilated small bowel, free fluid, or free air. No mesenteric or retroperitoneal lymphadenopathy. Normal appendix. Oral contrast progressed to the descending sigmoid colon junction. Mild scattered st ool. No pericolonic inflammatory change. Significant interval improvement of the previous inflammatory changes along the right adnexa and righ t side of the abdomen. There is mild fullness of the right ureter with mild urothelial enhancement th at could represent some residual reactive changes. Uterus is anteverted with improvement in the size as compared to prior exam. Right ovary is visualize d measuring 3.9 x 3.5 x 2.0 cm for a volume of 13.7 mL with follicular change. Follicular change in t he left ovary as well. No abnormal fluid collection the pelvis or pelvic lymphadenopathy seen. Bones: No osseous destructive process. IMPRESSION: 1. INTERVAL RESOLUTION OF THE PREVIOUS INFLAMMATORY CHANGES ALONG THE RIGHT SIDE OF THE ABDOMEN AND R ESOLUTION OF THE PREVIOUS ABNORMALLY ENLARGED RIGHT GONADAL VEIN. FINDINGS SUGGEST RESOLUTION OF PREV IOUS RIGHT GONADAL VEIN THROMBOSIS. 2. FOLLICULAR CHANGE IN BOTH OVARIES WHICH ARE NORMAL SIZE.
== END | disposition home or self-care (01) ==
LOC: RADCTMAIN 11:33
PROVIDERS: ATTEND Internal Medicine Hematology & Oncology
DX: I82.890 Acute embolism and thrombosis of other specified veins (principal)
CPT/HCPCS: 74177; Q9967

== ENCOUNTER 2018-06-11 09:48 | Emergency (ER) | payer OTHER ==
[2018-06-11 09:59] VITALS: RESP 18
[2018-06-11] MEDS ORDERED: ACETAMINOPHEN TAB 500 MG TAB PO STA (10:22)
[2018-06-11] MEDS ORDERED: IBUPROFEN 600 MG TAB PO STA (10:22)
--- NOTE | 2018-06-11 10:42 | ED ---
Fever HPI - General Chief Complaint: Fever Stated Complaint: fever Time Seen by Provider: 06/11/18 10:27 Source: patient, RN notes reviewed Mode of arrival: ambulatory Limitations: no limitations - History of Present Illness Initial Comments: 27-year-old female presents emergency Department with chief complaint cough congestion fever. Patient states symptoms started over the weekend. Patient states she aches had toe. Patient states that her cough is productive at times. Patient has persistent nasal drainage. She's been altering Tylenol Motrin at home. Patient has multiple sick contacts. - Related Data Home Medications Medication Instructions Recorded Confirmed Ibuprofen [Motrin Ib] 200 - 800 mg PO Q6H PRN 05/17/17 06/11/18 Acetaminophen Tab [Tylenol Tab] 1,000 mg PO Q6HR PRN 06/11/18 06/11/18 Aspirin EC [Ecotrin Low Dose] 81 mg PO DAILY 06/11/18 06/11/18 Previous Rx's Medication Instructions Recorded Oseltamivir [Tamiflu] 75 mg PO Q12HR #10 cap 06/11/18 Allergies Allergy/AdvReac Type Severity Reaction Status Date / Time No Known Allergies Allergy Verified 06/11/18 10:49 Review of Systems ROS Statement: Those systems with pertinent positive or pertinent negative responses have been documented in the HPI. ROS Other: All systems not noted in ROS Statement are negative. Past Medical History Past Medical History: Asthma, Rheumatoid Arthritis (RA) Additional Past Medical History / Comment(s): pt hasn't used inhaler since before , she states she was diagnosed with rheumatoid arthritis when she was 14 years old and only treated with naproxen which she has not taken any years History of Any Multi-Drug Resistant Organisms: None Reported Past Surgical History: Tonsillectomy Past Anesthesia/Blood Transfusion Reactions: No Reported Reaction Past Psychological History: No Psychological Hx Reported Smoking Status: Current every day smoker Past Alcohol Use History: None Reported Past Drug Use History: None Reported - Past Family History Mother Family Medical History: Asthma, Rheumatoid Arthritis (RA) General Exam Limitations: no limitations General appearance: alert, in no apparent distress Head exam: Present: atraumatic, normocephalic, normal inspection Eye exam: Present: normal appearance, PERRL, EOMI. Absent: scleral icterus, conjunctival injection, periorbital swelling ENT exam: Present: normal exam, normal oropharynx, mucous membranes moist, TM's normal bilaterally, normal external ear exam Neck exam: Present: normal inspection, full ROM. Absent: tenderness, men ingismus, lymphadenopathy Respiratory exam: Present: normal lung sounds bilaterally. Absent: respiratory distress, wheezes, rales, rhonchi, stridor Cardiovascular Exam: Present: regular rate, normal rhythm, normal heart sounds. Absent: systolic murmur, diastolic murmur, rubs, gallop, clicks GI/Abdominal exam: Present: soft, normal bowel sounds. Absent: distended, tenderness, guarding, rebound, rigid Neurological exam: Present: alert, oriented X3, CN II-XII intact Skin exam: Present: warm, dry, intact, normal color. Absent: rash Course Vital Signs 06/11/18 09:57 Temperature 100.6 F H Pulse Rate 85 Respiratory 18 Rate Blood Pressure 112/54 O2 Sat by Pulse 96 Oximetry Medical Decision Making - Medical Decision Making 27 show female presented emergency from for fever cough congestion. X-ray is negative. Influenza A positive. Patient will be discharged return parameters were discussed. - Lab Data Lab Results 06/11/18 Range/Units 11:00 Influenza Type A RNA Detected H (Not Detectd) Influenza Type B (PCR) Not Detected (Not Detectd) Disposition Clinical Impression: Influenza Disposition: HOME SELF-CARE Condition: Stable Instructions (If sedation given, give patient instructions): Influenza (ED) Additional Instructions: Please return to the Emergency Department if symptoms worsen or any other concerns. Prescriptions: Oseltamivir [Tamiflu] 75 mg PO Q12HR #10 cap Is patient prescribed a controlled substance at d/c from ED?: No Referrals: None,Stated [Primary Care Provider] - 1-2 days Time of Disposition: 12:21
--- NOTE | 2018-06-11 11:05 | XR ---
EXAMINATION TYPE: XR chest 2V DATE OF EXAM: 06/11/2018 COMPARISON: None INDICATION: Cough, fever TECHNIQUE: Frontal and lateral views of the chest are obtained. FINDINGS: The heart size is normal. The pulmonary vasculature is normal. The lungs are clear. IMPRESSION: 1. No acute pulmonary process.
[2018-06-11 13:14] VITALS: BP 95/68; PULSE 125; TEMP 99.8
== END 2018-06-11 12:40 | disposition home or self-care (01) ==
LOC: EC 09:48
DX: J10.1 Influenza due to other identified influenza virus with other respiratory manifestations (principal); F17.200 Nicotine dependence, unspecified, uncomplicated; Z79.82 Long term (current) use of aspirin
CPT/HCPCS: 71046; 87502; 99283

== ENCOUNTER 2023-03-16 06:00 | Inpatient (IN) | payer OTHER ==
[2023-03-16] MEDS ORDERED: METHYLERGONOVINE 0.2 MG/ML 1 ML AMP IM PRN (06:36)
[2023-03-16] MEDS ORDERED: TRANEXAMIC 1,000 MG/100ML-NACL 1,000 MG in EMPTY BAG 1 BAG IV PRN (06:36)
[2023-03-16] MEDS ORDERED: TERBUTALINE 1 MG/ML VIAL SQ PRN (06:36)
[2023-03-16] MEDS ORDERED: CARBOPROST TROMETHAMINE 250 MCG/ML 1 ML AMP IM PRN (06:36)
[2023-03-16] MEDS ORDERED: LIDOCAINE 0.5% (PF) 5 MG/ML (50 ML SDV) SQ PRN (06:36)
[2023-03-16] MEDS ORDERED: OXYTOCIN 10 UNIT/ML 1 ML VIAL IM PRN (06:36)
[2023-03-16] MEDS ORDERED: miSOPROStoL 200 MCG TAB PO PRN (06:36)
[2023-03-16] MEDS ORDERED: OXYTOCIN 30 UNITS/500 ML NS 30 UNIT in SALINE 1 500ML.BAG IV SCH (06:45)
--- NOTE | 2023-03-16 06:45 | P.HPOB ---
History of Present Illness H&P Date: 03/16/23 Chief Complaint: Induction of labor Ms. Waggoner is a 32 year old at 39 weeks and 0 days gestation with EDC of 03/23/2023 (by LMP consistent with 9 weeks US) who presents for induction of labor today. has been complicated by history of DVT in 2018 for which she is on Lovenox 40mg daily and monitored by Dr. Bermeo. Her last dose of Lovenox was yesterday morning. The is also complicated by tobacco use. The patient has Rh negative status and was not given Rhogam because her is also Rh negative. THe fetus is estimated to weigh 8 pounds and 4 ounces based on a 36w5d growth US, during which time the fetus was estimated in the 80%ile for growth. Obstetric history: 3 FTVD without complications, 1 still at 24 weeks workup: blood type B negative, antibody screen negative, rubella immune, VDRL non-reactive, HBsAg negative, HIV negative, HCV Ab negative, gonorrhea negative, chlamydia negative, 1 hour GTT within normal limits, GBS negative. Past Medical History Past Medical History: Asthma, Rheumatoid Arthritis (RA) Additional Past Medical History / Comment(s): pt hasn't used inhaler since before , she states she was diagnosed with rheumatoid arthritis when she was 14 years old and only treated with naproxen which she has not taken any years History of Any Multi-Drug Resistant Organisms: None Reported Past Surgical History: Tonsillectomy Past Anesthesia/Blood Transfusion Reactions: No Reported Reaction Past Psychological History: No Psychological Hx Reported Past Alcohol Use History: None Reported Past Drug Use History: None Reported - Past Family History Mother Family Medical History: Asthma, Rheumatoid Arthritis (RA) Medications and Allergies Home Medications Medication Instructions Recorded Confirmed Type Ibuprofen [Motrin Ib] 200 - 800 mg PO Q6H PRN 05/17/17 06/11/18 History Acetaminophen Tab [Tylenol Tab] 1,000 mg PO Q6HR PRN 06/11/18 06/11/18 History Aspirin EC [Ecotrin Low Dose] 81 mg PO DAILY 06/11/18 06/11/18 History Oseltamivir [Tamiflu] 75 mg PO Q12HR #10 cap 06/11/18 Rx Allergies Allergy/AdvReac Type Severity Reaction Status Date / Time No Known Allergies Allergy Verified 02/23/23 13:19 Exam Focused physical exam is performed. This is a healthy-appearing in no apparent distress. Breathing is non-labored. Abdomen is gravid and non-tender. Cervical exam is 1 cm, 50 effacement, -3 station. Extremeties non-tender and non-edematous. heart tones are reactive and ressuring on NST. Tocometer is graphing rare contractions. Assessment and Plan Assessment: 32 year old at 39 weeks presenting for IOL Plan: Admit, clear liquid diet, pitocin per protocol, plan for AROM in a few hours after starting pitocin, anticipate vaginal delivery
[2023-03-16] MEDS: LACTATED RINGERS 1,000 ML IV SCH ×4 (07:01→14:26)
[2023-03-16 07:57] LABS: Basophils % (A) 0 %; Eosinophils # (A) 0.1 k/uL (0-0.7); Eosinophils % (A) 1 %; HCT 36.3 % (34.0-46.0); HGB 12.4 gm/dL (11.4-16.0); Lymphocytes # (A) 1.8 k/uL (1.0-4.8); Lymphocytes % (A) 20 %; MCHC 34.2 g/dL (31.0-37.0); MCV 84.6 fL (80.0-100.0); Mean Platelet Volume 8.6; Monocytes # (A) 0.5 k/uL (0-1.0); Monocytes % (A) 6 %; Neutrophils # (A) 6.3 k/uL (1.3-7.7); Neutrophils % (A) 70 %; Platelet Count 199 k/uL (150-450); RBC 4.28 m/uL (3.80-5.40); RDW 14.5 % (11.5-15.5)
[2023-03-16 08:05] LABS: INR 0.8 (<1.2); Partial Thromboplastin Time 22.3 sec (22.0-30.0); Prothrombin Time 9.6 sec (10.0-12.5)
[2023-03-16] MEDS ORDERED: NALBUPHINE 10 MG/ML (10 ML MDV) IV PRN (08:58)
[2023-03-16] MEDS ORDERED: SODIUM CHLORIDE 0.9% 250 ML BAG ONE (10:31)
[2023-03-16] MEDS ORDERED: ROPIVACAINE 5 MG/ML 30 ML VIAL ONE (10:31)
[2023-03-16] MEDS ORDERED: fentaNYL (PF) 50 MCG/ML 5 ML AMP ONE (10:31)
[2023-03-16] MEDS ORDERED: KETOROLAC 15 MG/ML 1 ML VIAL IVP STA (20:23)
[2023-03-16] MEDS ORDERED: diphenhydrAMINE 25 MG CAP PO PRN (20:34)
[2023-03-16] MEDS ORDERED: ZOLPIDEM 5 MG TAB PO PRN (20:34)
[2023-03-16] MEDS ORDERED: BENZOCAINE/MENTHOL SPRAY 1 GM/SPRAY AEROSOL TOPICAL PRN (20:34)
[2023-03-16] MEDS ORDERED: HYDROCORTISONE 2.5% RECTAL CREAM 30 GM TUBE RECTAL PRN (20:34)
[2023-03-16] MEDS ORDERED: LANOLIN CREAM 5 GM TUBE TOPICAL PRN (20:34)
[2023-03-16] MEDS ORDERED: diphenhydrAMINE 50 MG/ML 1 ML VIAL IVP PRN ×2 (20:34)
[2023-03-16] MEDS ORDERED: Rhogam IMMUNE GLOBULIN 1,500 UNIT/1 ML IM ONE (20:34)
[2023-03-16] MEDS ORDERED: diphenhydrAMINE 50 MG CAP PO PRN (20:34)
[2023-03-16] MEDS ORDERED: SIMETHICONE 80 MG CHEWABLE PO PRN (20:34)
--- NOTE | 2023-03-16 20:34 | P.PROBDLV ---
Vaginal Delivery Note - . Vaginal Delivery Note: DATE OF SERVICE: 03/16/2023 PROCEDURE: Vaginal Delivery, Hemorrhage ATTENDING: Dr. Raven Santana MD ESTIMATED BLOOD LOSS: 600 mL FINDINGS: VMI, Apgars 8/9. Weight 7 pounds and 10 ounces (3480 grams) PROCEDURE: Ms. Waggoner is a 32 year old at 39 weeks presenting to labor and delivery for induction of labor. The has been complicated by history of ovarian vein thrombosis for which she has been on lovenox during the . For further details, please review the admitting H&P. The patient was completely dilated at 1999. The patient pushed effectively. A viable male infant was delivered at 2012. The was placed on the maternal abdomen and bulb suctioned. The was noted to be spontaneously crying. Cord was clamped and cut after a 30-second delay. The was handed off to the pediatric team. Placenta was delivered whole with gentle cord traction at 2015. Oxytocin was started to facilitate uterine tone. Uterine fundus was found to be atonic. Bimanual uterine massage was performed, oxytocin was run wide open, and IM Metherine was administered. The uterus became firm and was appreciated 2 centimeters below the umbilicus. Thorough examination of the cervix, vagina, periurethral area, and perineum revealed a hemostatic right periurethral laceration that did not require repair. The patient is stable and allowed to begin the bonding process.
[2023-03-16] MEDS: ACETAMINOPHEN TAB 325 MG TAB PO PRN (23:51)
[2023-03-17] MEDS ORDERED: CAFFEINE-SODIUM BENZOATE 500 MG in SODIUM CHLORIDE 0.9% 1,000 ML IVPB ONE ×2
[2023-03-17] MEDS: IBUPROFEN 600 MG TAB PO PRN ×3 (01:59→14:50)
[2023-03-17] MEDS: ACETAMINOPHEN TAB 325 MG TAB PO PRN ×2 (05:08→21:22)
[2023-03-17 05:46] VITALS: RESP 16
[2023-03-17 07:14] LABS: Basophils % (A) 0 %; Eosinophils # (A) 0.1 k/uL (0-0.7); Eosinophils % (A) 1 %; HCT 27.4 % (34.0-46.0); Lymphocytes # (A) 1.3 k/uL (1.0-4.8); Lymphocytes % (A) 16 %; MCH 29.3 pg (25.0-35.0); MCHC 34.4 g/dL (31.0-37.0); MCV 85.1 fL (80.0-100.0); Mean Platelet Volume 8.8; Monocytes # (A) 0.5 k/uL (0-1.0); Monocytes % (A) 5 %; Neutrophils # (A) 6.5 k/uL (1.3-7.7); Neutrophils % (A) 77 %; Platelet Count 168 k/uL (150-450); RBC 3.22 m/uL (3.80-5.40); RDW 14.6 % (11.5-15.5); WBC 8.5 k/uL (3.8-10.6)
[2023-03-17 07:32] LABS: HGB 9.4 gm/dL (11.4-16.0)
[2023-03-17] MEDS: SENNOSIDES-DOCUSATE SODIUM 1 EACH TAB PO SCH ×2 (08:19→22:12)
--- NOTE | 2023-03-17 11:26 | P.DS ---
Providers Date of admission: 03/16/23 06:11 Expected date of discharge: 03/17/23 Attending physician: Raven Santana MD Primary care physician: Stated None Hospital Course: Ms. Waggoner is a 32 year old now PPD#1 s/p vaginal delivery complicated by hemorrhage. She is doing well this morning and desires discharge home. She reports minimal lochia, passing flatus, voiding without difficulty, ambulating, and eating/drinking without nausea or vomiting. Infant doing well at bedside, s/p circumcision. She denies chest pain, shortness of breathing, fevers, or chills overnight. She denies pain or swelling in the legs. restrictions are reviewed with the patient including pelvic rest for 6 weeks. The patient is encouraged to call the office if she experiences any heavy bleeding, foul-smelling discharge, breast complaints, or any if she has any other concerns. She will follow up in the office with Dr. Gomez in 6 weeks for exam. She will take Motrin and Tylenol over the counter as needed for pain. She plans to restart her daily Lovenox this evening at 24 hours . All questions are answered. Assessment: 32 year old PPD#1 s/p vaginal delivery complicated by hemorrhage Patient Condition at Discharge: Good Plan - Discharge Summary New Discharge Prescriptions: No Action Aspirin EC [Ecotrin Low Dose] 81 mg PO DAILY Enoxaparin [Lovenox] 40 mg SQ DAILY Discharge Medication List Aspirin EC [Ecotrin Low Dose] 81 mg PO DAILY 06/11/18 [History] Enoxaparin [Lovenox] 40 mg SQ DAILY 03/16/23 [History] Follow up Appointment(s)/Referral(s): Joe Gomez MD [STAFF PHYSICIAN] - 6 Weeks Activity/Diet/Wound Care/Special Instructions: Instructions 1. Do not begin any exercise program for 3 weeks. 2. Do not resume sexual relations for 6 weeks or longer if uncomfortable. 3. You may take tub baths or showers at any time. 4. You may use tampons if desired after 6 weeks. 5. Keep any areas repaired with stitches clean and dry. 6. If you are not nursing, wear a good fitting, supportive bra during the day and limit fluid intake for at least 1 week to prevent breast engorgement. 7. Call the office, , within the next week to make appointment for your 6 week checkup if it has not already been made. 8. Report any of the following occurrences to the doctor promptly: a. Heavy, excessive bleeding b. Chills, fever c. Burning or frequency of urination d. Pain or redness and breasts if nursing e. Increasing pain or swelling of vulva (stitches). . Discharge Disposition: HOME SELF-CARE
[2023-03-17 21:32] VITALS: BP 108/71; PULSE 87; TEMP 98.1
== END 2023-03-17 21:55 | disposition home or self-care (01) | DRG 560 ==
LOC: MERGE 06:00 → 4FBP 06:11
PROVIDERS: ADMIT Obstetrics & Gynecology; ATTEND Obstetrics & Gynecology
PROC: 3E033VJ Introduction of Other Hormone into Peripheral Vein, Percutaneous Approach (ICD-10-PCS; principal; 2023-03-16)
PROC: 10E0XZZ Delivery of Products of Conception, External Approach (ICD-10-PCS; principal; 2023-03-16)
DX: O87.1 Deep phlebothrombosis in the puerperium (principal); O71.82 Other specified trauma to perineum and vulva; O72.1 Other immediate postpartum hemorrhage; O99.334 Smoking (tobacco) complicating childbirth; O99.52 Diseases of the respiratory system complicating childbirth; J45.909 Unspecified asthma, uncomplicated; F17.200 Nicotine dependence, unspecified, uncomplicated; M06.9 Rheumatoid arthritis, unspecified; Z37.0 Single live birth; Z3A.39 39 weeks gestation of pregnancy; Z79.01 Long term (current) use of anticoagulants; Z79.82 Long term (current) use of aspirin; Z82.5 Family history of asthma and other chronic lower respiratory diseases; Z82.61 Family history of arthritis; Z28.310 Unvaccinated for COVID-19; Z28.21 Immunization not carried out because of patient refusal
CPT/HCPCS: 85025; 85610; 85730; 86850; 86900; 86901

== ENCOUNTER 2023-10-26 22:00 | Emergency (ER) | payer MEDICAID ==
[2023-10-26] MEDS ORDERED: SODIUM CHLORIDE 0.9% 1,000 ML BAG ONE (23:02)
== END 2023-10-27 02:20 | disposition home or self-care (01) ==
LOC: EC 22:00
CPT/HCPCS: 86900; 86901; 96360; 99284

== ENCOUNTER 2023-10-29 14:56 | Emergency (ER) | payer MEDICAID ==
--- NOTE | 2023-11-25 19:46 | US ---
Site ID [facility] Selena German ID [id number] Age/Gender: 32Y, F Order # N/A Procedure US OB <= 14 wk fetus Date 10/29/2023 5:26:00 PM EXAMINATION TYPE: Transabdominal DATE OF EXAM: 11/12/2023 8:02 PM COMPARISON: NONE CLINICAL INDICATION: Female, 32 year old with history of vaginal bleeding, heavy bleeding with small clots; thought to be 10 weeks EXAM PERFORMED: Transabdominal (TA) EXAM MEASUREMENTS: Uterus: 11.1 x 6.5 x 7.3 cm. No intrauterine seen. Endometrium is thickened measuring up to 2.9 cm. Right Ovary: 4.0 x 2.6 x 2.7 cm. Dominant follicular cyst measuring 2.1 x 2.6 x 2.2 cm. Left Ovary: 3.1 x 2.3 x 2.8 cm. Within normal limits. Post CDS / Adnexa: Small amount of free fluid in the posterior cul-de-sac Presence of free fluid: Small amount in the posterior cul-de-sac Presence of corpus luteal cyst: No Presence of subchorionic bleed: No Beta HcG (if available): N/A Intrauterine identified. IMPRESSION: No evidence of intrauterine gestational sac, correlate with B-hCG. If positive, this could represent early , ectopic or spontaneous . Follow up pelvic ultrasound in 5-7 days a nd serial beta hCG studies are recommended.
== END 2023-10-29 21:20 | disposition home or self-care (01) ==
LOC: EC 14:56
DX: O03.4 Incomplete spontaneous abortion without complication (principal)
CPT/HCPCS: 76801; 86850; 86900; 86901; 99284

== ENCOUNTER 2024-05-30 14:01 | Emergency (ER) | payer MEDICAID, OTHER ==
[2024-05-30 14:29] VITALS: TEMP 98
[2024-05-30 15:03] LABS: Appearance,Urine Turbid (Clear); Bacteria,Urine Many /hpf; Bilirubin,Urine Negative (Negative); Blood,Urine Large (Negative); Color,Urine Red; Glucose,Urine (UA) Negative (Negative); Ketones,Urine Trace (Negative); Leukocyte Esterase,Urine Small (Negative); Mucus,Urine Moderate /hpf; Nitrite,Urine Negative (Negative); PH, Urine 5.5 (5.0-8.0); Protein,Urine 1+ (Negative); RBC,Urine >182 /hpf (0-5); Squamous Epithelial Cell,Urine 2 /hpf (0-4); Urobilinogen,Urine <2.0 mg/dL (<2.0); WBC,Urine 42 /hpf (0-5)
[2024-05-30 15:04] LABS: Basophils % (A) 0 %; Eosinophils # (A) 0.2 k/uL (0-0.7); Eosinophils % (A) 3 %; HCT 41.9 % (34.0-46.0); HGB 13.7 gm/dL (11.4-16.0); Lymphocytes # (A) 2.2 k/uL (1.0-4.8); Lymphocytes % (A) 30 %; MCH 26.1 pg (25.0-35.0); MCHC 32.8 g/dL (31.0-37.0); MCV 79.6 fL (80.0-100.0); Mean Platelet Volume 7.7; Monocytes # (A) 0.4 k/uL (0-1.0); Monocytes % (A) 5 %; Neutrophils # (A) 4.4 k/uL (1.3-7.7); Neutrophils % (A) 60 %; Platelet Count 316 k/uL (150-450); RBC 5.27 m/uL (3.80-5.40); RDW 14.3 % (11.5-15.5); WBC 7.2 k/uL (3.8-10.6)
[2024-05-30 15:13] LABS: ALT 18 U/L (4-34); African American GFR (CKD) >90 (>60 ml/min/1.73 sqM); Albumin 4.8 g/dL (3.5-5.0); Anion Gap 10 mmol/L; Blood Urea Nitrogen 7 mg/dL (7-17); Calcium 9.3 mg/dL (8.4-10.2); Carbon Dioxide 20 mmol/L (22-30); Chloride 107 mmol/L (98-107); Glucose 93 mg/dL (74-99); Non-African American GFR(CKD) >90 (>60 ml/min/1.73 sqM); Sodium 137 mmol/L (137-145)
--- NOTE | 2024-05-30 15:16 | US ---
EXAMINATION TYPE: Transabdominal DATE OF EXAM: 05/30/2024 2:59 PM COMPARISON: NONE CLINICAL INDICATION: Female, 33 years old with history of pain; Vaginal bleeding x 1 day TECHNIQUE: Transabdominal (TA) FINDINGS: EXAM MEASUREMENTS: GESTATIONAL AGE / DATING Physician Established: Not yet established Dates by LMP: (4 weeks/5 days) EDC: 02/01/2025 Dates by First Scan: No previous this is first scan Dates by Current Scan for: No IUP seen at this time MATERNAL ANATOMY Uterus: 8.5 x 4.5 x 5.5cm Right Ovary: 3.0 x 1.9 x 1.6cm Left Ovary: 2.8 x 1.9 x 2.6cm Post CDS / Adnexa: free fluid in posterior cul de sac Presence of free fluid: yes Presence of corpus luteal cyst: not seen Presence of subchorionic bleed: no GESTATION / SURVEY IUP: No IUP seen at this time Date of LMP: 04/27/2024 Beta HcG (if available): Not available at time of exam IMPRESSION: No evidence of intrauterine gestational sac, correlate with B-hCG. If positive, this could represent early , ectopic or spontaneous . Follow up pelvic ultrasound in 5-7 days a nd serial beta hCG studies are recommended. [facility], , 05/30/2024 3:14 PM
--- NOTE | 2024-05-30 15:49 | ED ---
Female Urogenital HPI - General Chief complaint: Vaginal Bleeding Stated complaint: preg unknown weeks,vaginal bleeding Time Seen by Provider: 05/30/24 14:15 Source: patient, RN notes reviewed Mode of arrival: ambulatory Limitations: no limitations - History of Present Illness Initial comments: This is a G7, 33-year-old female presenting for retinal bleeding starting at 0 300 this morning. Patient states she is approximately 1 week fol lowing several test showing a "faint line". States bleeding/discharge started as a small amount of brown with a significant amount of red blood around 1100 today that has slowed significantly since then. Endorses associated intermittent abdominal cramping (3/10). Endorses history of miscarriage in October 2023 and stillbirth at the age of 18. Denies fever, chills, nausea/vomiting, diarrhea, urinary symptoms. States she is currently taking prenatals but has not had an ultrasound or followed up with OB since discovery of . MD Complaint: vaginal bleeding Onset/Timin -: hour(s) Radiation: suprapubic Severity scale (1-10): 3 Quality: cramping Consistency: intermittent Patient : Yes - Related Data Home Medications Medication Instructions Recorded Confirmed Aspirin EC [Ecotrin Low Dose] 81 mg PO DAILY 06/11/18 03/16/23 Albuterol Inhaler [Ventolin Hfa 1 puff PO DIRECTED 12/09/19 12/09/19 Inhaler] Enoxaparin [Lovenox] 40 mg SQ DAILY 12/09/19 12/09/19 Pnv No.95/Ferrous Fum/Folic AC 1 tab PO DAILY 12/09/19 12/09/19 [ Multivitamin Tablet] Enoxaparin [Lovenox] 40 mg SQ DAILY 03/16/23 03/16/23 Allergies Allergy/AdvReac Type Severity Reaction Status Date / Time No Known Allergies Allergy Verified 05/30/24 14:29 Review of Systems ROS Statement: Those systems with pertinent positive or pertinent negative responses have been documented in the HPI. ROS Other: All systems not noted in ROS Statement are negative. Past Medical History Past Medical History: Asthma, Deep Vein Thrombosis (DVT), Rheumatoid Arthritis (RA) Additional Past Medical History / Comment(s): Hard of hearing. DVT after last delivery. Arthritis History of Any Multi-Drug Resistant Organisms: None Reported Past Surgical History: Tonsillectomy Additional Past Surgical History / Comment(s): Tubes Past Anesthesia/Blood Transfusion Reactions: No Reported Reaction Past Psychological History: Anxiety, Depression, No Psychological Hx Reported Smoking Status: Current every day smoker, Former smoker - Past Family History Mother Family Medical History: Asthma, Rheumatoid Arthritis (RA) Father Family Medical History: No Reported History General Exam Limitations: no limitations General appearance: alert, in no apparent distress Head exam: Present: atraumatic, normocephalic, normal inspection Eye exam: Present: normal appearance, PERRL, EOMI. Absent: scleral icterus, conjunctival injection, periorbital swelling ENT exam: Present: normal exam, mucous membranes moist Neck exam: Present: normal inspection. Absent: tenderness, meningismus, lymphadenopathy Respiratory exam: Present: normal lung sounds bilaterally. Absent: respiratory distress, wheezes, rales, rhonchi, stridor Cardiovascular Exam: Present: regular rate, normal rhythm, normal heart sounds. Absent: systolic murmur, diastolic murmur, rubs, gallop, clicks GI/Abdominal exam: Present: soft, tenderness (Positive right adnexal tenderness without guarding), normal bowel sounds. Absent: distended, guarding, rebound, rigid External exam: Present: other (Small trickle of blood noting coming from vaginal canal) Speculum exam: Present: vaginal bleeding (Slow, steady vaginal bleeding noted from closed cervical os with blood in vaginal canal. No obvious indications of tissue noted). Absent: foreign body, tissue, laceration Extremities exam: Present: normal inspection, full ROM, normal capillary refill. Absent: tenderness, pedal edema, joint swelling, calf tenderness Back exam: Present: normal inspection Neurological exam: Present: alert, oriented X3, CN II-XII intact Psychiatric exam: Present: normal affect, normal mood Skin exam: Present: warm, dry, intact, normal color. Absent: rash Course Vital Signs 05/30/24 14:27 Temperature 98.0 F Pulse Rate 84 Respiratory 18 Rate Blood Pressure 103/66 O2 Sat by Pulse 97 Oximetry Medical Decision Making - Medical Decision Making Was pt. sent in by a medical professional or institution (, PA, DIRECTOR OF HOME ECONOMICS, urgent care, hospital, or prison...) When possible be specific @ -[No] Did you speak to anyone other than the patient for history (EMS, parent, family, police, friend...)? What history was obtained from this source @ -[No] Did you review nursing and triage notes (agree or disagree)? Why? @ -[I reviewed and agree with nursing and triage notes] Were old charts reviewed (outside hosp., previous admission, EMS record, old EKG, old radiological studies, urgent care reports/EKG's, prison records)? Report findings @ -[No old charts were reviewed] Differential Diagnosis (chest pain, altered mental status, abdominal pain women, abdominal pain men, vaginal bleeding, weakness, fever, dyspnea, syncope, headache, dizziness, GI bleed, back pain, seizure, CVA, palpatations, mental health, musculoskeletal)? @ -Differential Vaginal Bleeding: Spontaneous , threatened , molar , ectopic , bloody show, incompetent cervix, abruptioplacenta, placenta previa, uterine rupture, dysfunctional uterine bleeding, hemorrhage, uterine fibroids, this is not meant to be an all-inclusive list. EKG interpreted by me (3pts min.). @ -Not done X-rays interpreted by me (1pt min.). @ -[None done] CT interpreted by me (1pt min.). @ -[None done] U/S interpreted by me (1pt. min.). @ -[None done] What testing was considered but not performed or refused? (CT, X-rays, U/S, labs)? Why? @ -[None] What meds were considered but not given or refused? Why? @ -[None] Did you discuss the management of the patient with other professionals (professionals i.e. , PA, DIRECTOR OF HOME ECONOMICS, lab, RT, psych nurse, mental health social worker, cruise consultant, teacher, bomb squad officer, bilingual case manager)? Give summary @ -[No] Was smoking cessation discussed for >3mins.? @ -[No] Was critical care preformed (if so, how long)? @ -[No] Were there social determinants of health that impacted care today? How? (Homelessness, low income, unemployed, alcoholism, drug addiction, tra nsportation, low edu. Level, literacy, decrease access to med. care, assisted, rehab)? @ -[No] Was there de-escalation of care discussed even if they declined (Discuss DNR or withdrawal of care, Hospice)? DNR status @ -[No] What co-morbidities impacted this encounter? (DM, HTN, Smoking, COPD, CAD, Cance r, CVA, ARF, Chemo, Hep., AIDS, mental health diagnosis, sleep apnea, morbid obesity)? @ -[None] Was patient admitted / discharged? Hospital course, mention meds given and route, prescriptions, significant lab abnormalities, going to OR and other pertinent info. @ -[hospital course] Undiagnosed new problem with uncertain prognosis? @ -[No] Drug Therapy requiring intensive monitoring for toxicity (Heparin, Nitro, Insulin, Cardizem)? @ -[No] Were any procedures done? @ -[No] Diagnosis/symptom? @ -[default] Acute, or Chronic, or Acute on Chronic? @ -Acute Uncomplicated (without systemic symptoms) or Complicated (systemic symptoms)? @ -Uncomplicated Side effects of treatment? @ -[No] Exacerbation, Progression, or Severe Exacerbation? @ -[No] Poses a threat to life or bodily function? How? (Chest pain, USA, IA, pneumonia, PE, COPD, DKA, ARF, appy, cholecystitis, CVA, Diverticulitis, Homicidal, Suicidal, threat to staff... and all critical care pts) @ -[No] - Lab Data Result diagrams: 05/30/24 14:37 05/30/24 14:37 Lab Results 05/30/24 05/30/24 05/30/24 Range/Units 14:37 14:37 14:40 WBC 7.2 (3.8-10.6) k/uL RBC 5.27 (3.80-5.40) m/uL Hgb 13.7 (11.4-16.0) gm/dL Hct 41.9 (34.0-46.0) % MCV 79.6 L (80.0-100.0) fL MCH 26.1 (25.0-35.0) pg MCHC 32.8 (31.0-37.0) g/dL RDW 14.3 (11.5-15.5) % Plt Count 316 (150-450) k/uL MPV 7.7 Neutrophils % 60 % Lymphocytes % 30 % Monocytes % 5 % Eosinophils % 3 % Basophils % 0 % Neutrophils # 4.4 (1.3-7.7) k/uL Lymphocytes # 2.2 (1.0-4.8) k/uL Monocytes # 0.4 (0-1.0) k/uL Eosinophils # 0.2 (0-0.7) k/uL Basophils # 0.0 (0-0.2) k/uL Sodium 137 (137-145) mmol/L Potassium 4.9 (3.5-5.1) mmol/L Chloride 107 (98-107) mmol/L Carbon Dioxide 20 L (22-30) mmol/L Anion Gap 10 mmol/L BUN 7 (7-17) mg/dL Creatinine 0.55 (0.52-1.04) mg/dL Est GFR (CKD-EPI)AfAm >90 (>60 ml/min/1.73 sqM) Est GFR (CKD-EPI)NonAf >90 (>60 ml/min/1.73 sqM) Glucose 93 (74-99) mg/dL Calcium 9.3 (8.4-10.2) mg/dL Total Bilirubin 1.0 (0.2-1.3) mg/dL AST 39 H (14-36) U/L ALT 18 (4-34) U/L Alkaline Phosphatase 57 (38-126) U/L Total Protein 8.0 (6.3-8.2) g/dL Albumin 4.8 (3.5-5.0) g/dL HCG, Quant mIU/mL Urine Color Urine Appearance (Clear) Urine pH (5.0-8.0) Ur Specific [place] (1.001-1.035) Urine Protein (Negative) Urine Glucose (UA) (Negative) Urine Ketones (Negative) Urine Blood (Negative) Urine Nitrite (Negative) Urine Bilirubin (Negative) Urine Urobilinogen (<2.0) mg/dL Ur Leukocyte Esterase (Negative) Urine RBC (0-5) /hpf Urine WBC (0-5) /hpf Ur Squamous Epith Cells (0-4) /hpf Urine Bacteria (None) /hpf Urine Mucus (None) /hpf Urine HCG, Qual Not Detected (Not Detectd) Blood Type Blood Type Recheck Bld Type Recheck Status Antibody Screen Spec Expiration Date 05/30/24 05/30/24 05/30/24 Range/Units 14:40 15:22 16:37 WBC (3.8-10.6) k/uL RBC (3.80-5.40) m/uL Hgb (11.4-16.0) gm/dL Hct (34.0-46.0) % MCV (80.0-100.0) fL MCH (25.0-35.0) pg MCHC (31.0-37.0) g/dL RDW (11.5-15.5) % Plt Count (150-450) k/uL MPV Neutrophils % % Lymphocytes % % Monocytes % % Eosinophils % % Basophils % % Neutrophils # (1.3-7.7) k/uL Lymphocytes # (1.0-4.8) k/uL Monocytes # (0-1.0) k/uL Eosinophils # (0-0.7) k/uL Basophils # (0-0.2) k/uL Sodium (137-145) mmol/L Potassium (3.5-5.1) mmol/L Chloride (98-107) mmol/L Carbon Dioxide (22-30) mmol/L Anion Gap mmol/L BUN (7-17) mg/dL Creatinine (0.52-1.04) mg/dL Est GFR (CKD-EPI)AfAm (>60 ml/min/1.73 sqM) Est GFR (CKD-EPI)NonAf (>60 ml/min/1.73 sqM) Glucose (74-99) mg/dL Calcium (8.4-10.2) mg/dL Total Bilirubin (0.2-1.3) mg/dL AST (14-36) U/L ALT (4-34) U/L Alkaline Phosphatase (38-126) U/L Total Protein (6.3-8.2) g/dL Albumin (3.5-5.0) g/dL HCG, Quant <2.4 mIU/mL Urine Color Red Urine Appearance Turbid H (Clear) Urine pH 5.5 (5.0-8.0) Ur Specific [place] 1.020 (1.001-1.035) Urine Protein 1+ H (Negative) Urine Glucose (UA) Negative (Negative) Urine Ketones Trace H (Negative) Urine Blood Large H (Negative) Urine Nitrite Negative (Negative) Urine Bilirubin Negative (Negative) Urine Urobilinogen <2.0 (<2.0) mg/dL Ur Leukocyte Esterase Small H (Negative) Urine RBC >182 H (0-5) /hpf Urine WBC 42 H (0-5) /hpf Ur Squamous Epith Cells 2 (0-4) /hpf Urine Bacteria Many H (None) /hpf Urine Mucus Moderate H (None) /hpf Urine HCG, Qual (Not Detectd) Blood Type B Negative Blood Type Recheck B Neg Bld Type Recheck Status No Antibody Screen NEGATIVE Spec Expiration Date 06/02/20242336 Disposition Clinical Impression: Miscarriage, Rh negative status during Disposition: HOME SELF-CARE Condition: Good Instructions (If sedation given, give patient instructions): Miscarriage (ED) Additional Instructions: Follow-up with TRIPE COOKER in the next 24-48 hours Is patient prescribed a controlled substance at d/c from ED?: No Referrals: None,Stated [Primary Care Provider] - 1-2 days Lupe Schafer DO [Doctor of Osteopathic Medicine] - 1-2 days Time of Disposition: 17:58
[2024-05-30 16:24] LABS: Potassium 4.9 mmol/L (3.5-5.1)
[2024-05-30 16:25] LABS: AST 39 U/L (14-36); Alkaline Phosphatase 57 U/L (38-126)
[2024-05-30] MEDS: Rhogam IMMUNE GLOBULIN 1,500 UNIT/1 ML IM ONE (18:12)
[2024-05-30 18:39] VITALS: BP 111/76; PULSE 80; RESP 20
== END 2024-05-30 18:41 | disposition home or self-care (01) ==
LOC: EC 14:01
DX: O03.9 Complete or unspecified spontaneous abortion without complication (principal); O26.899 Other specified pregnancy related conditions, unspecified trimester; O99.330 Smoking (tobacco) complicating pregnancy, unspecified trimester; F17.290 Nicotine dependence, other tobacco product, uncomplicated
CPT/HCPCS: 36415; 86900; 86901; 80053; 85025; 86850; 81001; 81025; 84702; 76801; 99284; 96372; J2790